=== PATIENT | female | born 1965 | race African-American/Black ===

== ENCOUNTER 2022-12-13 09:57 | Outpatient (REF) | payer OTHER, SELFPAY ==
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
== END 2022-12-13 09:58 | disposition home or self-care (01) ==
LOC: HO.XRAY 09:57
PROVIDERS: PCP Internal Medicine; Visit Provider Nurse Practitioner Family
DX: M25.512 Pain in left shoulder (principal); M62.838 Other muscle spasm
CPT/HCPCS: 73030; 99202

== ENCOUNTER 2025-06-27 10:04 | Outpatient (AMB) | payer OTHER, SELFPAY ==
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
[2025-06-27 10:58] VITALS: BP 142/100; PULSE 82; O2SAT 97; BMI 29.9
--- OUTSIDE RECORDS SUMMARY | 2025-06-27 12:03 | XMS_ITS | Clinical Summary ---
Author Organization [address] [place] [address] [place] [phone] Phone Care Team Providers Care Maintenance Mechanic Telephone Name Role Phone Sarah Price MD Primary Care Provider [phone] Allergies Active Allergy Reactions Criticality Noted Date Comments Oxycodone-Acetaminop hen Nausea And Vomiting,Sweating High 01/03/2006 Shaking (Percocet) Medications aspirin 81 mg chewable tablet Chew 1 tablet (81 mg total) 1 (one) time each day. 90 tablet 2 08/20/19 25 Active metoprolol succinate (Toprol XL) 100 mg 24 hr tablet Take 1 tablet (100 mg total) by mouth 1 (one) time each day. Do not crush or chew. 30 each 11 08/20/19 25 026 Active Wegovy 0.5 mg/0.5 mL injection pen ADMINISTER 0.5 MG UNDER THE SKIN 1 TIME WEEKLY Active triamcinolone (KENALOG) 0.1 % ointment Apply topically 2 (two) times a day if needed for irritation or rash. 15 g 04/26/20 25 026 Active losartan (COZAAR) 50 mg tablet Take 1 tablet (50 mg total) by mouth 1 (one) time each day. 90 tablet 3 05/07/20 25 Active atorvastatin (LIPITOR) 40 mg tablet TAKE 1 TABLET(40 MG) BY MOUTH 1 TIME EACH DAY 90 tablet 1 05/13/20 25 Active ibuprofen (ADVIL,MOTRIN) 800 mg tablet Take 1 tablet (800 mg total) by mouth 1 (one) time each day. Active multivitamin with minerals tablet Take 1 tablet by mouth 1 (one) time each day. Active amLODIPine (NORVASC) 10 mg tablet Take 1 tablet (10 mg total) by mouth 1 (one) time each day. 30 each 06/10/20 25 025 Active amLODIPine (NORVASC) 5 mg tablet TAKE 1 TABLET(5 MG) BY MOUTH 1 TIME EACH DAY 90 tablet 1 01/16/20 25 025 Discontinued docusate sodium (COLACE) 50 mg capsule 1 capsule (50 mg total) 2 (two) times a day. 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 She does have mild concentric LVH with prominent septal hypertrophy. MRI does not demonstrate infiltrative process. We will continue to monitor. Assessment & Plan (05/07/2025 9:54 AM EDT): Most recent echocardiogram from August showed a normal LV systolic function with an EF of 60-65%. She has moderate LVH with prominent septal hypertrophy but MRI does not demonstrate infiltrative disease. Genetic testing was negative. I suspect she could have a mild nonobstructive hypertrophic cardiomyopathy although cannot exclude the possibility of hypertension induced hypertrophy. Blood pressure is not well-controlled. She continues to drink half a pint of alcohol daily and has been encouraged to limit alcohol use. She appears euvolemic on physical exam. See below for adjustment to antihypertensive medication. Will continue to monitor. Assessment & Plan (08/20/2024 4:34 PM EST): Left ventricular systolic function has been back to normal range. Mildly reduced LVEF likely related to heavy alcohol use. She had moderate septal hypertrophy by echocardiogram and had MRI with T wave version. Suspect she could have mild nonobstructive hypertrophic cardiomyopathy although I cannot exclude the possibility of hypertension induced hypertrophy. I will repeat echocardiogram to see whether there is further progression of LVH. Meantime, I discussed with her about genetic testing and she agrees with proceeding the test after genetic testing counseling. Orders: ECG 12 lead Transthoracic echocardiogram (TTE) complete with PRN contrast, bubble, strain, and 3D order panel; Future Multiple thyroid nodules 05/18/2022 Overview (05/17/2024): US 05/14/22 IMPRESSION: Multiple bilateral thyroid nodules without highly suspicious features. Recommend follow-up ultrasound in 6 months. Aortic aneurysm (CMS/HCC V24) 04/23/2022 Overview (05/17/2024): Last Assessment & Plan: Dilated ascending aorta of 4.1 cm in transverse aorta 3.6 cm on echocardiogram from February 2022. We will repeat echocardiogram in February 2023. We will need to get blood pressure to control. Increasing metoprolol as above. LVH (left ventricular hypertrophy) 04/23/2022 Overview (05/17/2024): Last Assessment & Plan: She had fairly significant LVH. Blood pressure is quite elevated today especially diastolic blood pressure. She probably hypertensive heart disease. I will switch metoprolol to carvedilol and start losartan. Assessment & Plan (05/07/2025 9:59 AM EDT): Remains moderate, 1.5 cm on most recent echocardiogram, likely hypertensive heart disease. Blood pressure is not well-controlled in the office today. Losartan dose increased. Acute electrocardiogram changes 04/16/2022 Dyspnea on exertion 04/16/2022 Lower extremity edema 03/05/2022 Overview (05/17/2024): Last Assessment & Plan: We will assess cardiac functions and structures. We will check BNP level. Leg edema has resolved without intervention. Arm pain 03/02/2022 Chest pain 03/02/2022 Overview (05/17/2024): Last Assessment & Plan: Symptoms have improved. Previous ECGs show nonspecific ST segment abnormality most specific in the lateral leads. She underwent a nuclear stress test in the hospital with evidence of small anteroapical ischemic defect with an EF of 45%. She missed her appointment for coronary CTA which I am going to reschedule for her. She still has some blood pressure room and I am going to increase the metoprolol to 50 mg daily. I do believe a lot of her symptoms are secondary to her uncontrolled high blood pressure which I explained to her in depth. Assessment & Plan (08/20/2024 4:34 PM EST): Coronary artery CTA showed only mild plaques. Her lipid is at target. Will continue primary prevention. Constipation 06/28/2019 Obese 05/24/2019 Overview (05/17/2024): Last Assessment & Plan: Discussed diet, exercise and weight loss. We will continue to monitor and adjust treatment as indicated. Colon polyp 04/11/2015 Hyperlipidemia 06/03/2010 Overview (05/17/2024): Last Assessment & Plan: Last lipid panel from March 2022. Total cholesterol 155, HDL 41, LDL 99. Continue statin therapy. May need to adjust therapy depending on results of coronary CTA. Allergic rhinitis 12/09/2009 Essential hypertension 10/16/2008 Overview (05/17/2024): Last Assessment & Plan: Better controlled after cutting down on alcohol intake. Assessment & Plan (05/07/2025 9:56 AM EDT): Blood pressure remains elevated initially 152/110 and on recheck 144/110. Will increase losartan to 50 mg daily for better blood pressure control. Update BMP in 1 week. Continue amlodipine and metoprolol as prescribed. I recommended obtaining a home BP machine and asked her to begin monitoring blood pressure at home, goal <130/80. She will contact the office if blood pressures not improved as expected. Assessment & Plan (08/20/2024 4:34 PM EST): Remain elevated. She is not taking medication correctly and prefer once a day medication. Will switch carvedilol to metoprolol succinate 100 mg and daily and increase dose as tolerated. Alcoholism (CMS/HCC V24, CMS/HCC V28) 05/28/2008 Overview (05/17/2024): Last Assessment & Plan: She has a history of alcohol abuse and continues to drink heavily. She was educated to talk to her PCP regarding safely discontinuing. Tobacco use disorder 06/06/2007 Overview (05/17/2024): Last Assessment & Plan: Currently smoking 1 pack of cigarettes over the course of 2 days. We discussed smoking cessation. Continue nicotine patch. We discussed not smoking while she is wearing a nicotine patch. Assessment & Plan (05/07/2025 9:57 AM EDT): I had an extensive discussion regarding effects of tobacco use on heart (and general) health. We discussed smoking cessation. She is currently contemplating quitting. Intramural leiomyoma of uterus 12/19/2006 Encounters Date Type Department Care Team Description 06/10/2025 Telephone Internal Medicine - [facility] [address] [place] [address] Sarah Price MD 06/06/2025 3:30 PM EDT Consult General Surgery - [place] [address] [place] [phone] Jevon Castellon MD Lipoma of torso (Primary Dx) 06/06/2025 Telephone [facility] - [facility] [address] [facility] [address] [place] [phone] Hortencia Boss MD 06/04/2025 Results Follow-Up Internal Medicine - [facility] [address] [place] [address] Benton Quintanilla PA 05/31/2025 2:45 PM EDT Office Visit Internal Medicine - [facility] [address] [place] [address] Benton Quintanilla PA Compression fracture of L2 vertebra with routine healing, subsequent encounter (Primary Dx) 05/28/2025 Telephone Internal Medicine - [facility] [address] [place] [address] Sarah Price MD 05/13/2025 Telephone [facility] - [facility] [address] [facility] [address] [place] [phone] Hortencia Boss MD 05/07/2025 9:10 AM EDT Office Visit [facility] - [facility] [address] [facility] [address] [place] [phone] Kerri Batres NP Cardiomyopathy, unspecified type (CMS/HCC V24, CMS/HCC V28) (Primary Dx); Essential hypertension; LVH (left ventricular hypertrophy); Tobacco use disorder 04/26/2025 11:30 AM EDT Office Visit Internal Medicine - [facility] [address] [place] [address] Benton Quintanilla PA Health maintenance examination (Primary Dx); Hyperlipidemia, unspecified hyperlipidemia type; Essential hypertension; Lipoma, unspecified site; Abnormal kidney function 04/05/2025 Telephone Internal Medicine - [facility] [address] [place] [address] Hortensia Hunter, from Last 3 Months Immunizations Immunization Administration Dates Next Due Pneumococcal polysaccharide 23 valent (Pneumovax 23) 2yo and older 06/06/2007 Tdap Tetanus diptheria acell ular pertussis (Boostrix; Adacel) 7yo and older 06/06/2007 Surgical History Surgery Date Site/Laterality Comments COLONOSCOPY 04/11/2015 COLON POLYP X1 OTHERWISE NORMAL HYSTERECTOMY 05/15/2007 VAGINAL HYST WITH REMOVAL OF OVARIES AND FALLOPAIN TUBES OTHER SURGICAL HISTORY SKIN TISSUE EXCISION OTHER SURGICAL HISTORY FL CORPJ HLX VLGS BNCTY SESMDC W/ DOUBLE OSTEOTOMY Medical History Medical History Date Comments Essential hypertension Family History Medical History Relation Name Comments COPD Father HTN Father Cataracts Mother Relation Name Status Comments Father Mother Social History Tobacco Use Types Packs/Day Years Used Date Smoking Tobacco: Every Day Cigarettes Smokeless Tobacco: Never Tobacco Cessation:Ready to Q uit: Not Asked; Counseling Given: Not Answered Alcohol Use Standard Drinks/Week Comments Yes 0 (1 standard drink = 0.6 oz pur e alcohol) a pint a day Comments No Sex and Gender Information Value Date Recorded Sex Assigned at Not on file Legal Sex Female 7:28 AM EST Gender Identity Not on file Sexual Orientation Not on file Obstetrics History Para Term AB IAB SAB Ectopic Multiple Livin g Live Births 1 1 1 Date Outcome GA Total Labor Labor/2nd/3rd Weight Sex Type Anes PTL Mary A1 A5 Name Clin Term Last Filed Vital Signs Vital Sign Reading Time Taken Comments Blood Pressure 161/112 06/06/2025 3:48 PM EDT Pulse 81 06/06/2025 3:14 PM EDT Temperature - - Respiratory Rate 16 04/26/2025 11:23 AM EDT Oxygen Saturation 98% 05/07/2025 9:09 AM EDT Inhaled Oxygen Concentration - - Weight 93.9 kg (207 lb) 06/06/2025 3:14 PM EDT Height 175.3 cm (5' 9 ) 06/06/2025 3:14 PM EDT Body Mass Index 30.57 06/06/2025 3:14 PM EDT Plan of Treatment Upcoming Encounters Date Type Department Care Team (Late st Contact Info) Description 08/29/2025 7:40 AM EST Office Visit [facility] - [facility] [address] [facility] [address] [place] [phone] Kerri Batres NP [address] [place] [address] [address] [place] [address] 09/03/2025 3:00 PM EST Procedure visit General Surgery - [place] [address] [facility] [address] [place] [phone] Jevon Castellon MD [address] [facility] [address] [place] [address] 10/24/2025 3:00 PM EDT Office Visit Internal Medicine - [facility] [address] [place], [place] [phone] Sarah Price MD [address] [place], [place] Health Maintenance Due Date Last Done Comments Hepatitis A Vaccines (1 of 2 - Risk 2-dose series) 10/12/1982 Pneumococcal Vaccine: 50+ Years (2 of 2 - PCV) 06/06/2008 06/06/2007 RSV Immunization Adult Patients (1 - Risk 50-74 years 1-dose series) 10/12/2013 Zoster Vaccines (1 of 2) 10/12/2013 DTaP,Tdap,and Td Vaccines (2 - Td or Tdap) 06/06/2017 06/06/2007 HIV Screening 07/24/2022 Osteoporosis Screening (Bone Density Screening) 07/24/2022 Social Influencers of Health Screening 07/24/2022 Depression Screening 08/15/2024 COVID-19 Vaccine ( season) 2025 Influenza Vaccine (#1) 2025 Lung Cancer Screening (Low Dose CT) 02/21/2026 02/21/2025, 01/05/2024, 01/04/2024 Colorectal Cancer Screening: Colonoscopy 02/23/2026 02/23/2021 Hypertension/CHF/CAD Annual BMP Blood Test 05/31/2026 05/31/2025, 04/26/2025, 03/13/2024, Additional history exists Breast Cancer Screening 01/09/2027 01/10/20 25, 01/03/2024, 01/03/2024, Additional history exists Cholesterol Screening (Lipid Panel) 04/26/2030 04/26/2025, 12/16/2023, 12/16/2023 Hepatitis C Screening Completed 08/18/2015 HIB Vaccines Aged Out No longer eligi ble based on patient's age to complete this topic HPV Vaccines Aged Out No longer eligi ble based on patient's age to complete this topic Hepatitis B Vaccines Aged Out No long er eligible based on patient's age to complete this topic IPV Vaccines Aged Out No longer eligi ble based on patient's age to complete this topic MMR Vaccines Aged Out No longer eligi ble based on patient's age to complete this topic Meningococcal ACWY Vaccine Aged Out N o longer eligible based on patient's age to complete this topic Meningococcal B Vaccine Aged Out No l onger eligible based on patient's age to complete this topic RSV Immunization Patients Under 20 months Aged Out No longer eligible based on patient's age to complete this topic Varicella Vaccines Aged Out No longer eligible based on patient's age to complete this topic Procedures Procedure Name Priority Date/Time Associated Diagnosis Comments BASIC METABOLIC PANEL Routine 05/31/2025 2:59 PM EDT Abnormal kidney function ECG 12-LEAD Routine 05/07/2025 10:34 AM EDT Cardiomyopathy, unspecified type (CMS/HCC V24, CMS/HCC V28) LIPID PANEL WITH REFLEX TO DIRECT LDL Routine 04/26/2025 11:49 AM EDT Hyperlipidemia, unspecified hyperlipidemia type Essential hypertension COMPREHENSIVE METABOLIC PANEL Routine 04/26/2025 11:49 AM EDT Hyperlipidemia, unspecified hyperlipidemia type Essential hypertension CT LUNG SCREENING Routine 02/21/2025 4:0 1 PM EDT Encounter for screening for malignant neoplasm of respiratory organs Nicotine dependence, cigarettes, uncomplicated MG MAMMO DIGITAL SCREENING W ARNAV BILAT Routine 01/09/2025 4:01 PM EDT Encounter for screening mammogram for breast cancer HM COLONOSCOPY Routine 02/23/2021 HEPATITIS C SCREENING Routine 08/18/2015 from Last 3 Months or Most Recently Relevant to Health Maintenance Results * (ABNORMAL) Basic metabolic panel (05/31/2025 2:59 PM EDT) Sodium 141 133 - 145 mmol/L LAB CHEMISTRY METHOD 05/31/2025 6:39 PM EDT [facility] Potassium 3.5 3.5 - 5.5 mmol/L LAB CHEMISTRY METHOD 05/31/2025 6:39 PM EDT [facility] Chloride 107 96 - 110 mmol/L LAB CHEMISTRY METHOD 05/31/2025 6:39 PM EDT [facility] CO2 30 21 - 32 mmol/L LAB CHEMISTRY METHOD 05/31/2025 6:39 PM EDT [facility] Anion Gap 4 3 - 11 LAB CHEMISTRY METHOD 05/31/2025 6:39 PM EDT [facility] Glucose 81 70 - 100 mg/dL LAB CHEMISTRY METHOD 05/31/2025 6:39 PM T [facility] BUN 21 5 - 25 mg/dL LAB CHEMISTRY METHOD 05/31/2025 6:39 PM T [facility] Creatinine 1.14(H) 0.50 - 1.10 mg/dL LAB CHEMISTRY METHOD 05/31/2025 6:39 PM EDT [facility] eGFR 55(L) >=60 mL/min/1. 73m2 LAB CHEMISTRY METHOD 05/31/2025 6:39 PM T [facility] Comment:Calculation based on the Chronic Kidney Disease Epidemiology Collaboration (CKD-EPI) equation refit without adjustment for race. BUN/Creatinine Ratio 18.4 LAB CHEMISTRY METHOD 05/31/2025 6:39 PM T [facility] Calcium 9.3 8.5 - 10.5 mg/dL LAB CHEMISTRY METHOD 05/31/2025 6:39 PM [facility] Blood Venous blood specimen / Unknown Venipuncture / Unknown 05/31/2025 2:59 PM EDT 05/31/2025 2:59 PM EDT [facility] BLOOD ORDERABLES Fi nal Result [facility] [address] [place] [address], * ECG 12 lead (05/07/2025 10:34 AM EDT) Ventricular Rate ECG 80 BPM [facility] Atrial Rate 80 BPM GEM[facility] P-R Interval 136 ms GEMUSE QRS Duration 92 ms GEMUSE Q-T Interval 398 ms GEMUSE QTc 459 ms GEMUSE P Wave [place] 28 degrees GEMUSE R [place] -52 degrees GEMUSE T [place] -76 degrees GEMUSE ECG Interpretation Normal sinus rhythm Left anterior fascicular block Voltage criteria for left ventricular hypertrophy ST and T wave abnormality, consider inferior ischemia ST and T wave abnormality, consider anterolateral ischemia No significant changes are noted when compared with EKG from 08/2024. Confirmed by Carlito CASTREJON JOHN ([id number]) on 05/09/2025 3:59:50 PM [facility] 05/07/2025 9:15 AM EDT 05/09/2025 3:59 PM EDT us Kerri Batres CIRCUITRY NEGATIVE INSPECTOR ECG ORDERABLES Edited Result - Final [facility] * Lipid panel with reflex to direct LDL (04/26/2025 11:49 AM EDT) Cholesterol 169 0 - 200 mg/dL LAB CHEMISTRY METHOD 04/26/2025 3:46 PM EDT [facility] Triglycerides 124 0 - 150 mg/dL LAB CHEMISTRY METHOD 04/26/2025 3:46 PM EDT [facility] HDL 56 >=40 mg/dL LAB CHEMISTRY METHOD 04/26/2025 3:46 PM EDT [facility] LDL Calculated 88 0 - 100 mg/dL LAB CHEMISTRY METHOD 04/26/2025 3:46 PM EDT [facility] Comment:Estimated LDL Calcul ated using equation: Total cholesterol - HDL cholesterol - (Triglycerides/5) VLDL Cholesterol Rubio 24.8 mg/dL LAB CHEMISTRY METHOD 04/26/2025 3:46 PM T [facility] Non HDL Chol. (LDL+VLDL) 113 <145 mg/dL LAB CHEMISTRY METHOD 04/26/2025 3:46 PM EDT [facility] Chol/HDL Ratio 3.0 0.0 - 4.4 LAB CHEMISTRY METHOD 04/26/2025 3:46 PM T [facility] Blood Venous blood specimen / Unknown Venipuncture / Unknown 04/26/2025 11:49 AM EDT 04/26/2025 11:49 AM EDT [facility] BLOOD ORDERABLES Fi nal Result [facility] [address] [place] [address], [place] [phone] * (ABNORMAL) Comprehensive metabolic panel (04/26/2025 11:49 AM EDT) Pathologist [facility] Sodium 143 133 - 145 mmol/L LAB CHEMISTRY METHOD 04/26/2025 3:46 PM [facility] Potassium 3.5 3.5 - 5.5 mmol/L LAB CHEMISTRY METHOD 04/26/2025 3:46 PM [facility] Chloride 107 96 - 110 mmol/L LAB CHEMISTRY METHOD 04/26/2025 3:46 PM [facility] CO2 31 21 - 32 mmol/L LAB CHEMISTRY METHOD 04/26/2025 3:46 PM [facility] Anion Gap 5 3 - 11 LAB CHEMISTRY METHOD 04/26/2025 3:46 PM [facility] Glucose 109(H) 70 - 100 mg/dL LAB CHEMISTRY METHOD 04/26/2025 3:46 PM [facility] BUN 22 5 - 25 mg/dL LAB CHEMISTRY METHOD 04/26/2025 3:46 PM [facility] Creatinine 1.24(H) 0.50 - 1.10 mg/dL LAB CHEMISTRY METHOD 04/26/2025 3:46 PM [facility] eGFR 50(L) >=60 mL/min/1. 73m2 LAB CHEMISTRY METHOD 04/26/2025 3:46 PM [facility] Comment:Calculation based on the Chronic Kidney Disease Epidemiology Collaboration (CKD-EPI) equation refit without adjustment for race. BUN/Creatinine Ratio 17.7 LAB CHEMISTRY METHOD 04/26/2025 3:46 PM EDT [facility] Calcium 8.9 8.5 - 10.5 mg/dL LAB CHEMISTRY METHOD 04/26/2025 3:46 PM EDT [facility] AST (SGOT) 20 10 - 42 unit/L LAB CHEMISTRY METHOD 04/26/2025 3:46 PM EDT [facility] ALT (SGPT) 23 10 - 60 unit/L LAB CHEMISTRY METHOD 04/26/2025 3:46 PM EDT [facility] Alkaline Phosphatase 65 42 - 121 unit/L LAB CHEMISTRY METHOD 04/26/2025 3:46 PM EDT [facility] Total Protein 6.4 6.0 - 8.0 g/dL LAB CHEMISTRY METHOD 04/26[facility]2025 [facility] Albumin 3.6 3.2 - 5.0 g/dL LAB CHEMISTRY METHOD 04/26/2025 3:46 PM EDT [facility] Total Bilirubin 0.5 0.0 - 1.4 mg/dL LAB CHEMISTRY METHOD 04/26/2025 3:46 PM EDT [facility] Blood Venous blood specimen / Unknown Venipuncture / Unknown 04/26/2025 11:49 AM EDT 04/26/2025 11:49 AM EDT [facility] BLOOD ORDERABLES Fi nal Result [facility] [address] [place] [address], * CT Lung Screening (02/21/2025 4:01 PM EDT) Anatomical Region Laterality Modality Chest Computed Tomogra phy 02/22/2025 10:3 4 AM EDT Impressions 02/22/2025 10:41 AM EDT No suspicious mass or nodule. No suspicious interval change LUNG RADS: Lung-RADS 2: BENIGN S Modifier (Significant or Potentially Significant Findings): None present No suspicious nonpulmonary findings. RECOMMENDATIONS: 12 month screening low dose [address] -------- FINAL REPORT -------- Dictated By: Júnior Castillo Dictated Date: 02/22/2025 10:34 ET Assigned Physician: Júnior Castillo Reviewed and Electronically Signed By: Júnior Castillo Signed Date: 02/22/2025 10:41 ET Workstation ID: [id number] Transcribed By: Self Edit Transcribed Date: 02/22/2025 10:34 ET Narrative 02/22/2025 10:41 AM EDT EXAMINATION: CT CHEST WITHOUT CONTRAST LUNG CANCER SCREENING, LOW DOSE CLINICAL INFORMATION: Lung cancer screening. Current smoker. COMPARISON: Portions of previous 01/04/24 TECHNIQUE: Multidetector CT. Examination of the chest. Examination of the chest without IV contrast. Reformatting in the coronal and sagittal planes. Device: [employer] DLP: 155 mGy-cm CTDI: 4.89 Dose optimization was performed including the use of low-dose iterative reconstruction technique with automatic exposure control based on patient size. Type of contrast: None Volume of IV contrast: None Volume of contrast discarded: 0 mL FINDINGS: LUNG: No abnormality of the trachea or mainstem bronchi. LUNG NODULES: There are no suspicious nodules or masses. OTHER PULMONARY: There are pleural associated micronodules with typically benign features. MEDIASTINUM: There are no enlarged mediastinal or hilar lymph nodes. No suspicious abnormalities of the esophagus. CARDIAC: The heart is not enlarged. No pericardial fluid or thickening There are mild coronary calcifications. VASCULAR: The ascending aorta measures 4.0 cm. The main pulmonary artery appears normal. PLEURA: There is no pleural fluid or pneumothorax AXILLA/CHEST WALL: There are no enlarged axillary lymph nodes. No chest wall mass demonstrated. VISUALIZED UPPER ABDOMEN: No suspicious abnormality on limited assessment of the visualized upper abdomen. Unchanged small circumscribed low attenuating liver lesions may represent cysts. MUSCULOSKELETAL: No suspicious focal bony lesion demonstrated. Procedure Note Júnior Castillo MD - 02/22/2025 EXAMINATION: CT CHEST WITHOUT CONTRAST LUNG CANCER SCREENING, LOW DOSE CLINICAL INFORMATION: Lung cancer screening. Current smoker. COMPARISON: Portions of previous 01/04/24 TECHNIQUE: Multidetector CT. Examination of the chest. Examination of the chest without IV contrast. Reformatting in the coronal and sagittal planes. Device: [employer] DLP: 155 mGy-cm CTDI: 4.89 Dose optimization was performed including the use of low-dose iterativereconstruction technique with automatic exposure control based on patientsize. Type of contrast: None Volume of IV contrast: None Volume of contrast discarded: 0 mL FINDINGS: LUNG: No abnormality of the trachea or mainstem bronchi. LUNG NODULES: There are no suspicious nodules or masses. OTHER PULMONARY: There are pleural associated micronodules with typicallybenign features. MEDIASTINUM: There are no enlarged mediastinal or hilar lymph nodes. Nosuspicious abnormalities of the esophagus. CARDIAC: The heart is not enlarged. No pericardial fluid or thickening There are mild coronary calcifications. VASCULAR: The ascending aorta measures 4.0 cm. The main pulmonary arteryappears normal. PLEURA: There is no pleural fluid or pneumothorax AXILLA/CHEST WALL: There are no enlarged axillary lymph nodes. No chestwall mass demonstrated. VISUALIZED UPPER ABDOMEN: No suspicious abnormality on limited assessmentof the visualized upper abdomen. Unchanged small circumscribed lowattenuating liver lesions may represent cysts. MUSCULOSKELETAL: No suspicious focal bony lesion demonstrated. IMPRESSION: No suspicious mass or nodule. No suspicious interval change LUNG RADS: Lung-RADS 2: BENIGN S Modifier (Significant or Potentially Significant Findings): Nonepresent No suspicious nonpulmonary findings. RECOMMENDATIONS: [address] low dose CT -------- FINAL REPORT -------- Dictated By: Júnior Castillo Dictated Date: 02/22/2025 10:34 ET Assigned Physician: Júnior Castillo Reviewed and Electronically Signed By: Júnior Castillo Signed Date: 02/22/2025 10:41 ET Workstation ID: [id number] Transcribed By: Self Edit Transcribed Date: 02/22/2025 10:34 ET us Mary Gar MD [facility] CT PROCEDURES Final Result * [facility] Mammo Digital Screening w Arnav bilat (01/09/2025 4:01 PM EDT) Anatomical Region Laterality Modality Breast Bilateral Mammography 01/10/2025 2:44 PM EDT Impressions 01/10/2025 2:49 PM EDT 1. No mammographic evidence of malignancy 2. Scattered fibroglandular tissue BI-RADS CATEGORY: 2 - BENIGN RECOMMENDATION: Screening bilateral mammogram is recommended in 1 year. Mammo Location: [facility], [address] [place] [address], [id number], . -------- FINAL REPORT -------- Dictated By: Celso Miller Dictated Date: 01/10/2025 14:44 ET Assigned Physician: Celso Miller Reviewed and Electronically Signed By: Celso Miller Signed Date: 01/10/2025 14:49 ET Workstation ID: [id number] Transcribed By: Self Edit Transcribed Date: 01/10/2025 14:44 ET Narrative 01/10/2025 2:49 PM EDT A BILATERAL DIGITAL 3D SCREENING MAMMOGRAPHY HISTORY: Routine screening. COMPARISON: Multiple priors dating back to 02/07/2021 Technique: Bilateral full field digital mammography (3D) was performed using standard CC and MLO projections CAD was used to evaluate this mammogram. FINDINGS: Right: No suspicious masses, groups of microcalcification or areas of architectural distortion identified. Stable typically benign parenchymal asymmetries. Left: No suspicious masses, groups of microcalcification or areas of architectural distortion identified. Stable typically benign parenchymal asymmetries. BREAST DENSITY: B - There are scattered areas of fibroglandular density. Procedure Note Celso Miller MD - 01/10/2025 A BILATERAL DIGITAL 3D SCREENING MAMMOGRAPHY HISTORY: Routine screening. COMPARISON: Multiple priors dating back to 02/07/2021 Technique: Bilateral full field digital mammography (3D) was performedusing standard CC and MLO projections CAD was used to evaluate this mammogram. FINDINGS: Right: No suspicious masses, groups of microcalcification or areas ofarchitectural distortion identified. Stable typically benign parenchymalasymmetries. Left: No suspicious masses, groups of microcalcification or areas ofarchitectural distortion identified. Stable typically benign parenchymalasymmetries. BREAST DENSITY: B - There are scattered areas of fibroglandular density. IMPRESSION: 1. No mammographic evidence of malignancy 2. Scattered fibroglandular tissue BI-RADS CATEGORY: 2 - BENIGN RECOMMENDATION: Screening bilateral mammogram is recommended in 1 year. Mammo Location: [facility], [address] [place] [address], [id number], . -------- FINAL REPORT -------- Dictated By: Celso Miller Dictated Date: 01/10/2025 14:44 ET Assigned Physician: Celso Miller Reviewed and Electronically Signed By: Celso Miller Signed Date: 01/10/2025 14:49 ET Workstation ID: [id number] Transcribed By: Self Edit Transcribed Date: 01/10/2025 14:44 ET Hortensia Hunetr DO IMG BI PROCEDURES Final Result * Colonoscopy (02/23/2021) Colonoscopy abstracted; no interpretation Anatomical Region Laterality Modality Other Historical Provider HEALTH MAINTENANCE Final Result * Hepatitis C Screening (08/18/2015) Hepatitis C Screening abstracted Historical Provider HEALTH MAINTENANCE Final Result from Last 3 Months or Most Recently Relevant to Health Maintenance Insurance [place] [address] Care Teams 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
--- OUTSIDE RECORDS SUMMARY | 2025-06-27 12:03 | XMS_ITS | Patient Health Record ---
Author Organization [facility] [address] Address [address] [place] [address] Care Team Providers Care Neurology Stroke Physician Name Role Phone [facility] Care Provider Unavailable ZIGGY DUEÑAS Unavailable [phone] Allergies Allergen (clinical drug ingredient) Drug/Non Drug Allergy documented on EMR Reaction Allergy Type Onset Date Status acetaminophen / oxycodone Percocet stomach upset Drug Allergy Active Reason For Referral No Information Medications Medication SIG (Take, Route, Frequency, Duration) Notes Start Date End Date Status Ketorolac Tromethamine 0.5 % Solution Ophthalmic; Duration: 30 Days Active prednisoLONE Acetate 1 % Suspension SHAKE LIQUID AND INSTILL 1 DROP IN BOTH EYES TWICE DAILY Ophthalmic; Duration: 25 Days Active Escitalopram Oxalate 10 MG Tablet Oral; Duration: 30 Days Acti ve Atorvastatin Calcium 40 MG Tablet Oral; Duration: 30 Days Acti ve Varenicline Tartrate (Starter) 0.5 MG X 11 & 1 MG X 42 Tablet Therapy Pack FOLLOW PACKAGE INSTRUCTIONS Oral; Duration: 28 Days Not-Taking Wegovy 1.7 MG/0.75ML Solution Auto-injector Inject 1.7mg Subcutaneous once weekly; Duration: 30 days Active amLODIPine Besylate 10 MG Tablet 1 tablet Oral Once a day; Duration: 30 days Active Losartan Potassium 50 MG Tablet TAKE 1 TABLET BY MOUTH DAILY Oral; Duration: 30 days Active Metoprolol Succinate ER 100 MG Tablet Extended Release 24 Hour Oral; Duration: 30 Days A ctive Social History Section Notes: 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: 4 nips daily Tob: 1 PPD x40 years Drug: Denies 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: 4 nips daily Tob: 1 PPD x40 years Drug: Denies 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: 4 nips daily Tob: 1 PPD x40 years Drug: Denies 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: 4 nips daily Tob: 1 PPD x40 years Drug: Denies 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: 4 nips daily Tob: 1 PPD x40 years Drug: Denies Problems Problem Type SNOMED Code ICD Code Onset Dates Problem Status W/U Status Risk Notes Problem Essential hypertension (83275599) Essential hypertension (I10) Active confirmed Problem Hyperlipidaemia (17154840) Hyperlipidemia, unspecified hyperlipidemia type (E78.5) Active confirmed Problem Overweight (229117035) Overweight (BMI 25.0-29.9) (E66.3) Active confirmed Problem Mild depression (328842257) Mild depression (F32.A) Active confirmed Problem History of obesity (747895308) History of obesity (Z86.39) Active confirmed Vital Signs Heart Rate 89 /min 06/13/2025 Oximetry 98 % 06/13/2025 Blood pressure diastolic 88 mm Hg 06/13/2025 Height 70 in 06/13/2025 Blood pressure systolic 136 mm Hg 06/13/2025 Weight 203.8 lbs 06/13/2025 BMI 29.24 kg/m2 06/13/2025 Encounters Encounter Location Date Provider Diagnosis [facility] [phone] [address] 01/22/2025 ZIGGY DUEÑAS Obesity (BMI 30.0-34 .9) E66.811 ; BMI 30.0-30.9,adult Z68.30 ; Essential hypertension I10 ; Hyperlipidemia, unspecified hyperlipidemia type E78.5 ; Mild depression F32.A and Nutritional counseling Z71.3 [facility] [address] [address] 02/19/2025 ZIGGY DUEÑAS BMI 30.0-30.9,adult Z68.30 ; Obesity (BMI 30.0-34.9) E66.811 ; Essential hypertension I10 ; Hyperlipidemia, unspecified hyperlipidemia type E78.5 ; Mild depression F32.A and Nutritional counseling Z71.3 [facility] [address] [address] 03/28/2025 ZIGGY DUEÑAS Overweight (BMI 25.0-29.9) E66.3 ; BMI 29.0-29.9,adult Z68.29 ; History of obesity Z86.39 ; Essential hypertension I10 ; Hyperlipidemia, unspecified hyperlipidemia type E78.5 ; Mild depression F32.A and Nutritional counseling Z71.3 [facility] [address] [address] 05/09/2025 ZIGGY DUEÑAS BMI 29.0-29.9,adult Z68.29 ; Overweight (BMI 25.0-29.9) E66.3 ; History of obesity Z86.39 ; Essential hypertension I10 ; Hyperlipidemia, unspecified hyperlipidemia type E78.5 ; Mild depression F32.A and Nutritional counseling Z71.3 [facility] [address] [address] 06/13/2025 ZIGGY MOLINAHAM BMI 29.0-29.9,adult Z68.29 ; Overweight (BMI 25.0-29.9) E66.3 ; History of obesity Z86.39 ; Essential hypertension I10 ; Hyperlipidemia, unspecified hyperlipidemia type E78.5 ; Mild depression F32.A and Nutritional counseling Z71.3 [facility] [address] [address] 01/22/2025 ZIGGY MOLINAHAM [facility] [address] [address] 02/20/2025 ZIGGY CAMUY Obesity (BMI 30.0-34 .9) E66.811 Assessments Encounter Date Diagnosis (ICD Code) Assessment Notes Treatment Notes Treatment Clinical Notes Section Notes 01/22/2025 BMI 30.0-30.9,adult (ICD-10 - Z68.30) Martha is a 59-year-old female with a PMH of HTN, HLD, depression that presents for weight management consult. Patient was reassured and welcomed to the practice. Discussed [facility] holistic and medical approach to weight loss with emphasis on lifestyle modification. Patient is educated that a healthy lifestyle aids in combating obesity as well as reducing the risk of developing obesity-related medical complications including but not limited to diabetes and cardiovascular disease. Detailed education provided about taking steps to initiate sustainable lifestyle changes including incorporating regular physical activity, making healthy diet choices, and prioritizing mental health. Information provided about literature including The Food Rules by Brian Guthrie and Eat Fat Get Lean by Dr Peter Marion. Handouts including lifestyle checklist, protein content of food, low calorie snacks, and cholesterol information sheet provided. Diagnostic testing/ SECA scale offered. Discussed the importance of regular SECA scale measurements to ensure healthy weight loss. 01/22/2025: Weight: 215.3, BMI: 30.9. Reviewed SECA/goals for implementing sustainable lifestyle changes. Patient is encouraged to increase physical activity, goal 8-10k steps/day. Also discussed the importance of strength training with proper safety/body mechanics for maintenance of muscle mass/bone health. Patient encouraged to drink 60-80oz water/day. Reviewed nutrition, recommending food diary x 1 week to ensure adequate caloric/protein intake. Goal of 80-100g protein/day. Reviewed risks, benefits, and side effects of weight management medications including phentermine, Topamax, Contrave, metformin, and GLP-1 agonist. Patient interested in GLP-1/GIP agonist Zepbound. Denies personal/family history of medullary thyroid cancer/M EN. Rx for Zepbound 2.5 mg SC weekly sent to pharmacy. Reviewed proper use, administration, and expectations for PA process/insurance coverage. After consultation and careful review of medical history, this patient would benefit from Zepbound based off of the following criteria met: Patient is over the age of 18 with a BMI of 30.9 additional comorbidities include HTN, HLD. Patient has trialed other methods of weight loss including improving diet and exercise without success. This medication is prescribed by or in consultation with a board-certified obesity and weight management physician (Dr. Agustin Zuniga or Dr. Derek Zuniga). All questions answered to the patient's satisfaction. Patient demonstrates understanding of diagnosis and treatments discussed. Follow-up at next scheduled appointment, sooner should any questions/concerns arise. Case discussed with collaborating physician Rand Zuniga who has reviewed the assessment/plan. Chart, medications, labs, and vital signs reviewed. Dictation completed with the use of [employer] voice recognition software, prone to medical misidentifications and grammatical errors. All errors are unintentional. Although the practitioner does try to identify and correct errors, some may be present. Please do not hesitate to contact the practitioner for clarification. Total time was 60 minutes spent with greater than 50% on coordination of care and patient education. 01/22/2025 Obesity (BMI 30.0-34.9) (ICD-10 - E66.811) Martha is a 59-year-old female with a PMH of HTN, HLD, depression that presents for weight management consult. Patient was reassured and welcomed to the practice. Discussed [facility] holistic and medical approach to weight loss with emphasis on lifestyle modification. Patient is educated that a healthy lifestyle aids in combating obesity as well as reducing the risk of developing obesity-related medical complications including but not limited to diabetes and cardiovascular disease. Detailed education provided about taking steps to initiate sustainable lifestyle changes including incorporating regular physical activity, making healthy diet choices, and prioritizing mental health. Information provided about literature including The Food Rules by Brian Guthrie and Eat Fat Get Lean by Dr Peter Marion. Handouts including lifestyle checklist, protein content of food, low calorie snacks, and cholesterol information sheet provided. Diagnostic testing/ SECA scale offered. Discussed the importance of regular SECA scale measurements to ensure healthy weight loss. 01/22/2025: Weight: 215.3, BMI: 30.9. Reviewed SECA/goals for implementing sustainable lifestyle changes. Patient is encouraged to increase physical activity, goal 8-10k steps/day. Also discussed the importance of strength training with proper safety/body mechanics for maintenance of muscle mass/bone health. Patient encouraged to drink 60-80oz water/day. Reviewed nutrition, recommending food diary x 1 week to ensure adequate caloric/protein intake. Goal of 80-100g protein/day. Reviewed risks, benefits, and side effects of weight management medications including phentermine, Topamax, Contrave, metformin, and GLP-1 agonist. Patient interested in GLP-1/GIP agonist Zepbound. Denies personal/family history of medullary thyroid cancer/M EN. Rx for Zepbound 2.5 mg SC weekly sent to pharmacy. Reviewed proper use, administration, and expectations for PA process/insurance coverage. After consultation and careful review of medical history, this patient would benefit from Zepbound based off of the following criteria met: Patient is over the age of 16 with a BMI of 30.9 additional comorbidities include HTN, HLD. Patient has trialed other methods of weight loss including improving diet and exercise without success. This medication is prescribed by or in consultation with a board-certified obesity and weight management physician (Dr. Agustin Zuniga or Dr. Derek Zuniga). All questions answered to the patient's satisfaction. Patient demonstrates understanding of diagnosis and treatments discussed. Follow-up at next scheduled appointment, sooner should any questions/concerns arise. Case discussed with collaborating physician Rand Zuniga who has reviewed the assessment/plan. Chart, medications, labs, and vital signs reviewed. Dictation completed with the use of [employer] voice recognition software, prone to medical misidentifications and grammatical errors. All errors are unintentional. Although the practitioner does try to identify and correct errors, some may be present. Please do not hesitate to contact the practitioner for clarification. Total time was 60 minutes spent with greater than 50% on coordination of care and patient education. 02/19/2025 BMI 30.0-30.9,adult (ICD-10 - Z68.30) Martha is a 59-year-old female with a PMH of HTN, HLD, depression that presents for weight management follow up. Reviewed [facility] holistic and medical approach to weight loss with emphasis on lifestyle modification. 02/19/2025: Weight: 214, BMI: 30.7. Patient down 1 pound. SECA reviewed, reveals fat loss with improvement in muscle mass. Patient encouraged to continue making health-conscious diet choices and prioritizing protein intake. Discussed importance of regular eating habits in the setting of GLP-1 induced appetite suppression. She is encouraged to increase physical activity as tolerated given back injury. Plan to increase dose of the 0.5 mg SC weekly and follow-up in 4 weeks. #HTN: BP elevated at 138/96. Discussed importance of antihypertensive compliance. BP likely elevated in setting of current steroid use. Patient encouraged to continue monitoring. 01/22/2025: Weight: 215.3, BMI: 30.9. All questions answered to the patient's satisfaction. Patient demonstrates understanding of diagnosis and treatments discussed. Follow-up at next scheduled appointment, sooner should any questions/concerns arise. Case discussed with collaborating physician Rand Zuniga who has reviewed the assessment/plan. Chart, medications, labs, and vital signs reviewed. Dictation completed with the use of [employer] voice recognition software, prone to medical misidentifications and grammatical errors. All errors are unintentional. Although the practitioner does try to identify and correct errors, some may be present. Please do not hesitate to contact the practitioner for clarification. Total time was 30 minutes spent with greater than 50% on coordination of care and patient education. 03/28/2025 BMI 29.0-29.9,adult (ICD-10 - Z68.29) Martha is a 59-year-old female with a PMH of HTN, HLD, depression that presents for weight management follow up. Reviewed [facility] holistic and medical approach to weight loss with emphasis on lifestyle modification. 03/28/2025: Weight: 208, BMI: 29.8 (-6lbs) SECA reviewed, reveals fat loss and mild loss of muscle mass. Patient encouraged to continue practicing portion control, prioritizing protein intake, and limiting intake of excess fatty foods/carbs. She is encouraged to continue hydrating adequately and exercising as tolerated. Because insurance will no longer cover Zepbound patient willing to transition to Wegovy. Sample of Wegovy 0.25 mg SC weekly Provided, if tolerated plan to increase to 0.5 mg SC weekly. Reviewed proper use/SE follow-up in 4-6 weeks. #HTN: BP elevated at 148/98. Discussed importance of antihypertensive compliance. Patient encouraged to continue monitoring at home. If consistently elevated >130/90 she understands to contact her PCP. 02/19/2025: Weight: 214, BMI: 30.7. (-1lb) 01/22/2025: Weight: 215.3, BMI: 30.9. All questions answered to the patient's satisfaction. Patient demonstrates understanding of diagnosis and treatments discussed. Follow-up at next scheduled appointment, sooner should any questions/concerns arise. Case discussed with collaborating physician Rand Zuniga who has reviewed the assessment/plan. Chart, medications, labs, and vital signs reviewed. Dictation completed with the use of [employer] voice recognition software, prone to medical misidentifications and grammatical errors. All errors are unintentional. Although the practitioner does try to identify and correct errors, some may be present. Please do not hesitate to contact the practitioner for clarification. Total time was 30 minutes spent with greater than 50% on coordination of care and patient education. 03/28/2025 Overweight (BMI 25.0-29.9) (ICD-10 - E66.3) Martha is a 59-year-old female with a PMH of HTN, HLD, depression that presents for weight management follow up. Reviewed [facility] holistic and medical approach to weight loss with emphasis on lifestyle modification. 03/28/2025: Weight: 208, BMI: 29.8 (-6lbs) SECA reviewed, reveals fat loss and mild loss of muscle mass. Patient encouraged to continue practicing portion control, prioritizing protein intake, and limiting intake of excess fatty foods/carbs. She is encouraged to continue hydrating adequately and exercising as tolerated. Because insurance will no longer cover Zepbound patient willing to transition to Wegovy. Sample of Wegovy 0.25 mg SC weekly Provided, if tolerated plan to increase to 0.5 mg SC weekly. Reviewed proper use/SE follow-up in 4-6 weeks. #HTN: BP elevated at 148/98. Discussed importance of antihypertensive compliance. Patient encouraged to continue monitoring at home. If consistently elevated >130/90 she understands to contact her PCP. 02/19/2025: Weight: 214, BMI: 30.7. (-1lb) 01/22/2025: Weight: 215.3, BMI: 30.9. All questions answered to the patient's satisfaction. Patient demonstrates understanding of diagnosis and treatments discussed. Follow-up at next scheduled appointment, sooner should any questions/concerns arise. Case discussed with collaborating physician Rand Zuniga who has reviewed the assessment/plan. Chart, medications, labs, and vital signs reviewed. Dictation completed with the use of [employer] voice recognition software, prone to medical misidentifications and grammatical errors. All errors are unintentional. Although the practitioner does try to identify and correct errors, some may be present. Please do not hesitate to contact the practitioner for clarification. Total time was 30 minutes spent with greater than 50% on coordination of care and patient education. 02/20/2025 Obesity (BMI 30.0-34.9) (ICD-10 - E66.811) 05/09/2025 BMI 29.0-29.9,adult (ICD-10 - Z68.29) Martha is a 59-year-old female with a PMH of HTN, HLD, depression that presents for weight management follow up. Reviewed [facility] holistic and medical approach to weight loss with emphasis on lifestyle modification. 05/09/2025: Weight: 207, BMI: 29.8 SECA reviewed, reveals minor increase in fat mass and loss of muscle mass. Discussed importance of prioritizing intake of healthier foods. Patient encouraged to avoid fried foods and work on incorporating nutrient dense food options. She is encouraged to increase water intake, goal 60 ounces/day. Discussed importance of increasing physical activity as tolerated. Plan to increase dose of Wegovy to 1 mg SC weekly and follow-up in 4 to 6 weeks. 03/28/2025: Weight: 208, BMI: 29.8 (-6lbs) 02/19/2025: Weight: 214, BMI: 30.7. (-1lb) 01/22/2025: Weight: 215.3, BMI: 30.9. All questions answered to the patient's satisfaction. Patient demonstrates understanding of diagnosis and treatments discussed. Follow-up at next scheduled appointment, sooner should any questions/concerns arise. Case discussed with collaborating physician Rand Zuniga who has reviewed the assessment/plan. Chart, medications, labs, and vital signs reviewed. Dictation completed with the use of [employer] voice recognition software, prone to medical misidentifications and grammatical errors. All errors are unintentional. Although the practitioner does try to identify and correct errors, some may be present. Please do not hesitate to contact the practitioner for clarification. Total time was 30 minutes spent with greater than 50% on coordination of care and patient education. 06/13/2025 BMI 29.0-29.9,adult (ICD-10 - Z68.29) Martha is a 59-year-old female with a PMH of HTN, HLD, depression that presents for weight management follow up. Reviewed [facility] holistic and medical approach to weight loss with emphasis on lifestyle modification. 06/13/2025: Weight: 203.8, BMI: 29.2 (-5lbs) SECA reviewed, reveals 4.2 pounds of fat loss and mild improvement in muscle mass. Patient encouraged to avoid fried foods and work on incorporating nutrient dense food options. She is encouraged to increase water intake, goal 60 ounces/day. Discussed importance of increasing physical activity as tolerated. Plan to increase dose of Wegovy to 1.7 mg SC weekly and follow-up in 4 to 6 weeks. 05/09/2025: Weight: 207, BMI: 29.8 03/28/2025: Weight: 208, BMI: 29.8 (-6lbs) 02/19/2025: Weight: 214, BMI: 30.7. (-1lb) 01/22/2025: Weight: 215.3, BMI: 30.9. All questions answered to the patient's satisfaction. Patient demonstrates understanding of diagnosis and treatments discussed. Follow-up at next scheduled appointment, sooner should any questions/concerns arise. Case discussed with collaborating physician Rand Zuniga who has reviewed the assessment/plan. Chart, medications, labs, and vital signs reviewed. Dictation completed with the use of [employer] voice recognition software, prone to medical misidentifications and grammatical errors. All errors are unintentional. Although the practitioner does try to identify and correct errors, some may be present. Please do not hesitate to contact the practitioner for clarification. Total time was 30 minutes spent with greater than 50% on coordination of care and patient education. 06/13/2025 Overweight (BMI 25.0-29.9) (ICD-10 - E66.3) Martha is a 59-year-old female with a PMH of HTN, HLD, depression that presents for weight management follow up. Reviewed [facility] holistic and medical approach to weight loss with emphasis on lifestyle modification. 06/13/2025: Weight: 203.8, BMI: 29.2 (-5lbs) SECA reviewed, reveals 4.2 pounds of fat loss and mild improvement in muscle mass. Patient encouraged to avoid fried foods and work on incorporating nutrient dense food options. She is encouraged to increase water intake, goal 60 ounces/day. Discussed importance of increasing physical activity as tolerated. Plan to increase dose of Wegovy to 1.7 mg SC weekly and follow-up in 4 to 6 weeks. 05/09/2025: Weight: 207, BMI: 29.8 03/28/2025: Weight: 208, BMI: 29.8 (-6lbs) 02/19/2025: Weight: 214, BMI: 30.7. (-1lb) 01/22/2025: Weight: 215.3, BMI: 30.9. All questions answered to the patient's satisfaction. Patient demonstrates understanding of diagnosis and treatments discussed. Follow-up at next scheduled appointment, sooner should any questions/concerns arise. Case discussed with collaborating physician Rand Zuniga who has reviewed the assessment/plan. Chart, medications, labs, and vital signs reviewed. Dictation completed with the use of [employer] voice recognition software, prone to medical misidentifications and grammatical errors. All errors are unintentional. Although the practitioner does try to identify and correct errors, some may be present. Please do not hesitate to contact the practitioner for clarification. Total time was 30 minutes spent with greater than 50% on coordination of care and patient education. 05/09/2025 Overweight (BMI 25.0-29.9) (ICD-10 - E66.3) Martha is a 59-year-old female with a PMH of HTN, HLD, depression that presents for weight management follow up. Reviewed [facility] holistic and medical approach to weight loss with emphasis on lifestyle modification. 05/09/2025: Weight: 207, BMI: 29.8 SECA reviewed, reveals minor increase in fat mass and loss of muscle mass. Discussed importance of prioritizing intake of healthier foods. Patient encouraged to avoid fried foods and work on incorporating nutrient dense food options. She is encouraged to increase water intake, goal 60 ounces/day. Discussed importance of increasing physical activity as tolerated. Plan to increase dose of Wegovy to 1 mg SC weekly and follow-up in 4 to 6 weeks. 03/28/2025: Weight: 208, BMI: 29.8 (-6lbs) 02/19/2025: Weight: 214, BMI: 30.7. (-1lb) 01/22/2025: Weight: 215.3, BMI: 30.9. All questions answered to the patient's satisfaction. Patient demonstrates understanding of diagnosis and treatments discussed. Follow-up at next scheduled appointment, sooner should any questions/concerns arise. Case discussed with collaborating physician Rand Zuniga who has reviewed the assessment/plan. Chart, medications, labs, and vital signs reviewed. Dictation completed with the use of [employer] voice recognition software, prone to medical misidentifications and grammatical errors. All errors are unintentional. Although the practitioner does try to identify and correct errors, some may be present. Please do not hesitate to contact the practitioner for clarification. Total time was 30 minutes spent with greater than 50% on coordination of care and patient education. 02/19/2025 Obesity (BMI 30.0-34.9) (ICD-10 - E66.811) Martha is a 59-year-old female with a PMH of HTN, HLD, depression that presents for weight management follow up. Reviewed [facility] holistic and medical approach to weight loss with emphasis on lifestyle modification. 02/19/2025: Weight: 214, BMI: 30.7. Patient down 1 pound. SECA reviewed, reveals fat loss with improvement in muscle mass. Patient encouraged to continue making health-conscious diet choices and prioritizing protein intake. Discussed importance of regular eating habits in the setting of GLP-1 induced appetite suppression. She is encouraged to increase physical activity as tolerated given back injury. Plan to increase dose of the 0.5 mg SC weekly and follow-up in 4 weeks. #HTN: BP elevated at 138/96. Discussed importance of antihypertensive compliance. BP likely elevated in setting of current steroid use. Patient encouraged to continue monitoring. 01/22/2025: Weight: 215.3, BMI: 30.9. All questions answered to the patient's satisfaction. Patient demonstrates understanding of diagnosis and treatments discussed. Follow-up at next scheduled appointment, sooner should any questions/concerns arise. Case discussed with collaborating physician Rand Zuniga who has reviewed the assessment/plan. Chart, medications, labs, and vital signs reviewed. Dictation completed with the use of [employer] voice recognition software, prone to medical misidentifications and grammatical errors. All errors are unintentional. Although the practitioner does try to identify and correct errors, some may be present. Please do not hesitate to contact the practitioner for clarification. Total time was 30 minutes spent with greater than 50% on coordination of care and patient education. 03/28/2025 History of obesity (ICD-10 - Z86.39) Martha is a 59-year-old female with a PMH of HTN, HLD, depression that presents for weight management follow up. Reviewed [facility] holistic and medical approach to weight loss with emphasis on lifestyle modification. 03/28/2025: Weight: 208, BMI: 29.8 (-6lbs) SECA reviewed, reveals fat loss and mild loss of muscle mass. Patient encouraged to continue practicing portion control, prioritizing protein intake, and limiting intake of excess fatty foods/carbs. She is encouraged to continue hydrating adequately and exercising as tolerated. Because insurance will no longer cover Zepbound patient willing to transition to Wegovy. Sample of Wegovy 0.25 mg SC weekly Provided, if tolerated plan to increase to 0.5 mg SC weekly. Reviewed proper use/SE follow-up in 4-6 weeks. #HTN: BP elevated at 148/98. Discussed importance of antihypertensive compliance. Patient encouraged to continue monitoring at home. If consistently elevated >130/90 she understands to contact her PCP. 02/19/2025: Weight: 214, BMI: 30.7. (-1lb) 01/22/2025: Weight: 215.3, BMI: 30.9. All questions answered to the patient's satisfaction. Patient demonstrates understanding of diagnosis and treatments discussed. Follow-up at next scheduled appointment, sooner should any questions/concerns arise. Case discussed with collaborating physician Rand Zuniga who has reviewed the assessment/plan. Chart, medications, labs, and vital signs reviewed. Dictation completed with the use of [employer] voice recognition software, prone to medical misidentifications and grammatical errors. All errors are unintentional. Although the practitioner does try to identify and correct errors, some may be present. Please do not hesitate to contact the practitioner for clarification. Total time was 30 minutes spent with greater than 50% on coordination of care and patient education. 01/22/2025 Essential hypertension (ICD-10 - I10) Martha is a 59-year-old female with a PMH of HTN, HLD, depression that presents for weight management consult. Patient was reassured and welcomed to the practice. Discussed [facility] holistic and medical approach to weight loss with emphasis on lifestyle modification. Patient is educated that a healthy lifestyle aids in combating obesity as well as reducing the risk of developing obesity-related medical complications including but not limited to diabetes and cardiovascular disease. Detailed education provided about taking steps to initiate sustainable lifestyle changes including incorporating regular physical activity, making healthy diet choices, and prioritizing mental health. Information provided about literature including The Food Rules by Brian Guthrie and Eat Fat Get Lean by Dr Peter Marion. Handouts including lifestyle checklist, protein content of food, low calorie snacks, and cholesterol information sheet provided. Diagnostic testing/ SECA scale offered. Discussed the importance of regular SECA scale measurements to ensure healthy weight loss. 01/22/2025: Weight: 215.3, BMI: 30.9. Reviewed SECA/goals for implementing sustainable lifestyle changes. Patient is encouraged to increase physical activity, goal 8-10k steps/day. Also discussed the importance of strength training with proper safety/body mechanics for maintenance of muscle mass/bone health. Patient encouraged to drink 60-80oz water/day. Reviewed nutrition, recommending food diary x 1 week to ensure adequate caloric/protein intake. Goal of 80-100g protein/day. Reviewed risks, benefits, and side effects of weight management medications including phentermine, Topamax, Contrave, metformin, and GLP-1 agonist. Patient interested in GLP-1/GIP agonist Zepbound. Denies personal/family history of medullary thyroid cancer/M EN. Rx for Zepbound 2.5 mg SC weekly sent to pharmacy. Reviewed proper use, administration, and expectations for PA process/insurance coverage. After consultation and careful review of medical history, this patient would benefit from Zepbound based off of the following criteria met: Patient is over the age of 16 with a BMI of 30.9 additional comorbidities include HTN, HLD. Patient has trialed other methods of weight loss including improving diet and exercise without success. This medication is prescribed by or in consultation with a board-certified obesity and weight management physician (Dr. Agustin Zuniga or Dr. Derek Zuniga). All questions answered to the patient's satisfaction. Patient demonstrates understanding of diagnosis and treatments discussed. Follow-up at next scheduled appointment, sooner should any questions/concerns arise. Case discussed with collaborating physician Rand Zuniga who has reviewed the assessment/plan. Chart, medications, labs, and vital signs reviewed. Dictation completed with the use of [employer] voice recognition software, prone to medical misidentifications and grammatical errors. All errors are unintentional. Although the practitioner does try to identify and correct errors, some may be present. Please do not hesitate to contact the practitioner for clarification. Total time was 60 minutes spent with greater than 50% on coordination of care and patient education. 01/22/2025 Hyperlipidemia, unspecified hyperlipidemia type (ICD-10 - E78.5) Martha is a 59-year-old female with a PMH of HTN, HLD, depression that presents for weight management consult. Patient was reassured and welcomed to the practice. Discussed [facility] holistic and medical approach to weight loss with emphasis on lifestyle modification. Patient is educated that a healthy lifestyle aids in combating obesity as well as reducing the risk of developing obesity-related medical complications including but not limited to diabetes and cardiovascular disease. Detailed education provided about taking steps to initiate sustainable lifestyle changes including incorporating regular physical activity, making healthy diet choices, and prioritizing mental health. Information provided about literature including The Food Rules by Brian Guthrie and Eat Fat Get Lean by Dr Peter Marion. Handouts including lifestyle checklist, protein content of food, low calorie snacks, and cholesterol information sheet provided. Diagnostic testing/ SECA scale offered. Discussed the importance of regular SECA scale measurements to ensure healthy weight loss. 01/22/2025: Weight: 215.3, BMI: 30.9. Reviewed SECA/goals for implementing sustainable lifestyle changes. Patient is encouraged to increase physical activity, goal 8-10k steps/day. Also discussed the importance of strength training with proper safety/body mechanics for maintenance of muscle mass/bone health. Patient encouraged to drink 60-80oz water/day. Reviewed nutrition, recommending food diary x 1 week to ensure adequate caloric/protein intake. Goal of 80-100g protein/day. Reviewed risks, benefits, and side effects of weight management medications including phentermine, Topamax, Contrave, metformin, and GLP-1 agonist. Patient interested in GLP-1/GIP agonist Zepbound. Denies personal/family history of medullary thyroid cancer/M EN. Rx for Zepbound 2.5 mg SC weekly sent to pharmacy. Reviewed proper use, administration, and expectations for PA process/insurance coverage. After consultation and careful review of medical history, this patient would benefit from Zepbound based off of the following criteria met: Patient is over the age of 16 with a BMI of 30.9 additional comorbidities include HTN, HLD. Patient has trialed other methods of weight loss including improving diet and exercise without success. This medication is prescribed by or in consultation with a board-certified obesity and weight management physician (Dr. Agustin Zuniga or Dr. Derek Zuniga). All questions answered to the patient's satisfaction. Patient demonstrates understanding of diagnosis and treatments discussed. Follow-up at next scheduled appointment, sooner should any questions/concerns arise. Case discussed with collaborating physician Rand Zuniga who has reviewed the assessment/plan. Chart, medications, labs, and vital signs reviewed. Dictation completed with the use of [employer] voice recognition software, prone to medical misidentifications and grammatical errors. All errors are unintentional. Although the practitioner does try to identify and correct errors, some may be present. Please do not hesitate to contact the practitioner for clarification. Total time was 60 minutes spent with greater than 50% on coordination of care and patient education. 02/19/2025 Essential hypertension (ICD-10 - I10) Martha is a 59-year-old female with a PMH of HTN, HLD, depression that presents for weight management follow up. Reviewed [facility] holistic and medical approach to weight loss with emphasis on lifestyle modification. 02/19/2025: Weight: 214, BMI: 30.7. Patient down 1 pound. SECA reviewed, reveals fat loss with improvement in muscle mass. Patient encouraged to continue making health-conscious diet choices and prioritizing protein intake. Discussed importance of regular eating habits in the setting of GLP-1 induced appetite suppression. She is encouraged to increase physical activity as tolerated given back injury. Plan to increase dose of the 0.5 mg SC weekly and follow-up in 4 weeks. #HTN: BP elevated at 138/96. Discussed importance of antihypertensive compliance. BP likely elevated in setting of current steroid use. Patient encouraged to continue monitoring. 01/22/2025: Weight: 215.3, BMI: 30.9. All questions answered to the patient's satisfaction. Patient demonstrates understanding of diagnosis and treatments discussed. Follow-up at next scheduled appointment, sooner should any questions/concerns arise. Case discussed with collaborating physician Rand Zuniga who has reviewed the assessment/plan. Chart, medications, labs, and vital signs reviewed. Dictation completed with the use of [employer] voice recognition software, prone to medical misidentifications and grammatical errors. All errors are unintentional. Although the practitioner does try to identify and correct errors, some may be present. Please do not hesitate to contact the practitioner for clarification. Total time was 30 minutes spent with greater than 50% on coordination of care and patient education. 06/13/2025 History of obesity (ICD-10 - Z86.39) Martha is a 59-year-old female with a PMH of HTN, HLD, depression that presents for weight management follow up. Reviewed [facility] holistic and medical approach to weight loss with emphasis on lifestyle modification. 06/13/2025: Weight: 203.8, BMI: 29.2 (-5lbs) SECA reviewed, reveals 4.2 pounds of fat loss and mild improvement in muscle mass. Patient encouraged to avoid fried foods and work on incorporating nutrient dense food options. She is encouraged to increase water intake, goal 60 ounces/day. Discussed importance of increasing physical activity as tolerated. Plan to increase dose of Wegovy to 1.7 mg SC weekly and follow-up in 4 to 6 weeks. 05/09/2025: Weight: 207, BMI: 29.8 03/28/2025: Weight: 208, BMI: 29.8 (-6lbs) 02/19/2025: Weight: 214, BMI: 30.7. (-1lb) 01/22/2025: Weight: 215.3, BMI: 30.9. All questions answered to the patient's satisfaction. Patient demonstrates understanding of diagnosis and treatments discussed. Follow-up at next scheduled appointment, sooner should any questions/concerns arise. Case discussed with collaborating physician Rand Zuniga who has reviewed the assessment/plan. Chart, medications, labs, and vital signs reviewed. Dictation completed with the use of [employer] voice recognition software, prone to medical misidentifications and grammatical errors. All errors are unintentional. Although the practitioner does try to identify and correct errors, some may be present. Please do not hesitate to contact the practitioner for clarification. Total time was 30 minutes spent with greater than 50% on coordination of care and patient education. 05/09/2025 History of obesity (ICD-10 - Z86.39) Martha is a 59-year-old female with a PMH of HTN, HLD, depression that presents for weight management follow up. Reviewed [facility] holistic and medical approach to weight loss with emphasis on lifestyle modification. 05/09/2025: Weight: 207, BMI: 29.8 SECA reviewed, reveals minor increase in fat mass and loss of muscle mass. Discussed importance of prioritizing intake of healthier foods. Patient encouraged to avoid fried foods and work on incorporating nutrient dense food options. She is encouraged to increase water intake, goal 60 ounces/day. Discussed importance of increasing physical activity as tolerated. Plan to increase dose of Wegovy to 1 mg SC weekly and follow-up in 4 to 6 weeks. 03/28/2025: Weight: 208, BMI: 29.8 (-6lbs) 02/19/2025: Weight: 214, BMI: 30.7. (-1lb) 01/22/2025: Weight: 215.3, BMI: 30.9. All questions answered to the patient's satisfaction. Patient demonstrates understanding of diagnosis and treatments discussed. Follow-up at next scheduled appointment, sooner should any questions/concerns arise. Case discussed with collaborating physician Rand Zuniga who has reviewed the assessment/plan. Chart, medications, labs, and vital signs reviewed. Dictation completed with the use of [employer] voice recognition software, prone to medical misidentifications and grammatical errors. All errors are unintentional. Although the practitioner does try to identify and correct errors, some may be present. Please do not hesitate to contact the practitioner for clarification. Total time was 30 minutes spent with greater than 50% on coordination of care and patient education. 06/13/2025 Essential hypertension (ICD-10 - I10) Martha is a 59-year-old female with a PMH of HTN, HLD, depression that presents for weight management follow up. Reviewed [facility] holistic and medical approach to weight loss with emphasis on lifestyle modification. 06/13/2025: Weight: 203.8, BMI: 29.2 (-5lbs) SECA reviewed, reveals 4.2 pounds of fat loss and mild improvement in muscle mass. Patient encouraged to avoid fried foods and work on incorporating nutrient dense food options. She is encouraged to increase water intake, goal 60 ounces/day. Discussed importance of increasing physical activity as tolerated. Plan to increase dose of Wegovy to 1.7 mg SC weekly and follow-up in 4 to 6 weeks. 05/09/2025: Weight: 207, BMI: 29.8 03/28/2025: Weight: 208, BMI: 29.8 (-6lbs) 02/19/2025: Weight: 214, BMI: 30.7. (-1lb) 01/22/2025: Weight: 215.3, BMI: 30.9. All questions answered to the patient's satisfaction. Patient demonstrates understanding of diagnosis and treatments discussed. Follow-up at next scheduled appointment, sooner should any questions/concerns arise. Case discussed with collaborating physician Rand Zuniga who has reviewed the assessment/plan. Chart, medications, labs, and vital signs reviewed. Dictation completed with the use of [employer] voice recognition software, prone to medical misidentifications and grammatical errors. All errors are unintentional. Although the practitioner does try to identify and correct errors, some may be present. Please do not hesitate to contact the practitioner for clarification. Total time was 30 minutes spent with greater than 50% on coordination of care and patient education. 02/19/2025 Hyperlipidemia, unspecified hyperlipidemia type (ICD-10 - E78.5) Martha is a 59-year-old female with a PMH of HTN, HLD, depression that presents for weight management follow up. Reviewed [facility] holistic and medical approach to weight loss with emphasis on lifestyle modification. 02/19/2025: Weight: 214, BMI: 30.7. Patient down 1 pound. SECA reviewed, reveals fat loss with improvement in muscle mass. Patient encouraged to continue making health-conscious diet choices and prioritizing protein intake. Discussed importance of regular eating habits in the setting of GLP-1 induced appetite suppression. She is encouraged to increase physical activity as tolerated given back injury. Plan to increase dose of the 0.5 mg SC weekly and follow-up in 4 weeks. #HTN: BP elevated at 138/96. Discussed importance of antihypertensive compliance. BP likely elevated in setting of current steroid use. Patient encouraged to continue monitoring. 01/22/2025: Weight: 215.3, BMI: 30.9. All questions answered to the patient's satisfaction. Patient demonstrates understanding of diagnosis and treatments discussed. Follow-up at next scheduled appointment, sooner should any questions/concerns arise. Case discussed with collaborating physician Rand Zuniga who has reviewed the assessment/plan. Chart, medications, labs, and vital signs reviewed. Dictation completed with the use of [employer] voice recognition software, prone to medical misidentifications and grammatical errors. All errors are unintentional. Although the practitioner does try to identify and correct errors, some may be present. Please do not hesitate to contact the practitioner for clarification. Total time was 30 minutes spent with greater than 50% on coordination of care and patient education. 01/22/2025 Mild depression (ICD-10 - F32.A) Martha is a 59-year-old female with a PMH of HTN, HLD, depression that presents for weight management consult. Patient was reassured and welcomed to the practice. Discussed [facility] holistic and medical approach to weight loss with emphasis on lifestyle modification. Patient is educated that a healthy lifestyle aids in combating obesity as well as reducing the risk of developing obesity-related medical complications including but not limited to diabetes and cardiovascular disease. Detailed education provided about taking steps to initiate sustainable lifestyle changes including incorporating regular physical activity, making healthy diet choices, and prioritizing mental health. Information provided about literature including The Food Rules by Brian Guthrie and Eat Fat Get Lean by Dr Peter Marion. Handouts including lifestyle checklist, protein content of food, low calorie snacks, and cholesterol information sheet provided. Diagnostic testing/ SECA scale offered. Discussed the importance of regular SECA scale measurements to ensure healthy weight loss. 01/22/2025: Weight: 215.3, BMI: 30.9. Reviewed SECA/goals for implementing sustainable lifestyle changes. Patient is encouraged to increase physical activity, goal 8-10k steps/day. Also discussed the importance of strength training with proper safety/body mechanics for maintenance of muscle mass/bone health. Patient encouraged to drink 60-80oz water/day. Reviewed nutrition, recommending food diary x 1 week to ensure adequate caloric/protein intake. Goal of 80-100g protein/day. Reviewed risks, benefits, and side effects of weight management medications including phentermine, Topamax, Contrave, metformin, and GLP-1 agonist. Patient interested in GLP-1/GIP agonist Zepbound. Denies personal/family history of medullary thyroid cancer/M EN. Rx for Zepbound 2.5 mg SC weekly sent to pharmacy. Reviewed proper use, administration, and expectations for PA process/insurance coverage. After consultation and careful review of medical history, this patient would benefit from Zepbound based off of the following criteria met: Patient is over the age of 16 with a BMI of 30.9 additional comorbidities include HTN, HLD. Patient has trialed other methods of weight loss including improving diet and exercise without success. This medication is prescribed by or in consultation with a board-certified obesity and weight management physician (Dr. Agustin Zuniga or Dr. Derek Zuniga). All questions answered to the patient's satisfaction. Patient demonstrates understanding of diagnosis and treatments discussed. Follow-up at next scheduled appointment, sooner should any questions/concerns arise. Case discussed with collaborating physician Rand Zuniga who has reviewed the assessment/plan. Chart, medications, labs, and vital signs reviewed. Dictation completed with the use of [employer] voice recognition software, prone to medical misidentifications and grammatical errors. All errors are unintentional. Although the practitioner does try to identify and correct errors, some may be present. Please do not hesitate to contact the practitioner for clarification. Total time was 60 minutes spent with greater than 50% on coordination of care and patient education. 05/09/2025 Essential hypertension (ICD-10 - I10) Martha is a 59-year-old female with a PMH of HTN, HLD, depression that presents for weight management follow up. Reviewed [facility] holistic and medical approach to weight loss with emphasis on lifestyle modification. 05/09/2025: Weight: 207, BMI: 29.8 SECA reviewed, reveals minor increase in fat mass and loss of muscle mass. Discussed importance of prioritizing intake of healthier foods. Patient encouraged to avoid fried foods and work on incorporating nutrient dense food options. She is encouraged to increase water intake, goal 60 ounces/day. Discussed importance of increasing physical activity as tolerated. Plan to increase dose of Wegovy to 1 mg SC weekly and follow-up in 4 to 6 weeks. 03/28/2025: Weight: 208, BMI: 29.8 (-6lbs) 02/19/2025: Weight: 214, BMI: 30.7. (-1lb) 01/22/2025: Weight: 215.3, BMI: 30.9. All questions answered to the patient's satisfaction. Patient demonstrates understanding of diagnosis and treatments discussed. Follow-up at next scheduled appointment, sooner should any questions/concerns arise. Case discussed with collaborating physician Rand Zuniga who has reviewed the assessment/plan. Chart, medications, labs, and vital signs reviewed. Dictation completed with the use of [employer] voice recognition software, prone to medical misidentifications and grammatical errors. All errors are unintentional. Although the practitioner does try to identify and correct errors, some may be present. Please do not hesitate to contact the practitioner for clarification. Total time was 30 minutes spent with greater than 50% on coordination of care and patient education. 05/09/2025 Hyperlipidemia, unspecified hyperlipidemia type (ICD-10 - E78.5) Martha is a 59-year-old female with a PMH of HTN, HLD, depression that presents for weight management follow up. Reviewed [facility] holistic and medical approach to weight loss with emphasis on lifestyle modification. 05/09/2025: Weight: 207, BMI: 29.8 SECA reviewed, reveals minor increase in fat mass and loss of muscle mass. Discussed importance of prioritizing intake of healthier foods. Patient encouraged to avoid fried foods and work on incorporating nutrient dense food options. She is encouraged to increase water intake, goal 60 ounces/day. Discussed importance of increasing physical activity as tolerated. Plan to increase dose of Wegovy to 1 mg SC weekly and follow-up in 4 to 6 weeks. 03/28/2025: Weight: 208, BMI: 29.8 (-6lbs) 02/19/2025: Weight: 214, BMI: 30.7. (-1lb) 01/22/2025: Weight: 215.3, BMI: 30.9. All questions answered to the patient's satisfaction. Patient demonstrates understanding of diagnosis and treatments discussed. Follow-up at next scheduled appointment, sooner should any questions/concerns arise. Case discussed with collaborating physician Rand Zuniga who has reviewed the assessment/plan. Chart, medications, labs, and vital signs reviewed. Dictation completed with the use of [employer] voice recognition software, prone to medical misidentifications and grammatical errors. All errors are unintentional. Although the practitioner does try to identify and correct errors, some may be present. Please do not hesitate to contact the practitioner for clarification. Total time was 30 minutes spent with greater than 50% on coordination of care and patient education. 03/28/2025 Essential hypertension (ICD-10 - I10) Martha is a 59-year-old female with a PMH of HTN, HLD, depression that presents for weight management follow up. Reviewed [facility] holistic and medical approach to weight loss with emphasis on lifestyle modification. 03/28/2025: Weight: 208, BMI: 29.8 (-6lbs) SECA reviewed, reveals fat loss and mild loss of muscle mass. Patient encouraged to continue practicing portion control, prioritizing protein intake, and limiting intake of excess fatty foods/carbs. She is encouraged to continue hydrating adequately and exercising as tolerated. Because insurance will no longer cover Zepbound patient willing to transition to Wegovy. Sample of Wegovy 0.25 mg SC weekly Provided, if tolerated plan to increase to 0.5 mg SC weekly. Reviewed proper use/SE follow-up in 4-6 weeks. #HTN: BP elevated at 148/98. Discussed importance of antihypertensive compliance. Patient encouraged to continue monitoring at home. If consistently elevated >130/90 she understands to contact her PCP. 02/19/2025: Weight: 214, BMI: 30.7. (-1lb) 01/22/2025: Weight: 215.3, BMI: 30.9. All questions answered to the patient's satisfaction. Patient demonstrates understanding of diagnosis and treatments discussed. Follow-up at next scheduled appointment, sooner should any questions/concerns arise. Case discussed with collaborating physician Rand Zuniga who has reviewed the assessment/plan. Chart, medications, labs, and vital signs reviewed. Dictation completed with the use of [employer] voice recognition software, prone to medical misidentifications and grammatical errors. All errors are unintentional. Although the practitioner does try to identify and correct errors, some may be present. Please do not hesitate to contact the practitioner for clarification. Total time was 30 minutes spent with greater than 50% on coordination of care and patient education. 01/22/2025 Nutritional counseling (ICD-10 - Z71.3) Martha is a 59-year-old female with a PMH of HTN, HLD, depression that presents for weight management consult. Patient was reassured and welcomed to the practice. Discussed [facility] holistic and medical approach to weight loss with emphasis on lifestyle modification. Patient is educated that a healthy lifestyle aids in combating obesity as well as reducing the risk of developing obesity-related medical complications including but not limited to diabetes and cardiovascular disease. Detailed education provided about taking steps to initiate sustainable lifestyle changes including incorporating regular physical activity, making healthy diet choices, and prioritizing mental health. Information provided about literature including The Food Rules by Brian Guthrie and Eat Fat Get Lean by Dr Peter Marion. Handouts including lifestyle checklist, protein content of food, low calorie snacks, and cholesterol information sheet provided. Diagnostic testing/ SECA scale offered. Discussed the importance of regular SECA scale measurements to ensure healthy weight loss. 01/22/2025: Weight: 215.3, BMI: 30.9. Reviewed SECA/goals for implementing sustainable lifestyle changes. Patient is encouraged to increase physical activity, goal 8-10k steps/day. Also discussed the importance of strength training with proper safety/body mechanics for maintenance of muscle mass/bone health. Patient encouraged to drink 60-80oz water/day. Reviewed nutrition, recommending food diary x 1 week to ensure adequate caloric/protein intake. Goal of 80-100g protein/day. Reviewed risks, benefits, and side effects of weight management medications including phentermine, Topamax, Contrave, metformin, and GLP-1 agonist. Patient interested in GLP-1/GIP agonist Zepbound. Denies personal/family history of medullary thyroid cancer/M EN. Rx for Zepbound 2.5 mg SC weekly sent to pharmacy. Reviewed proper use, administration, and expectations for PA process/insurance coverage. After consultation and careful review of medical history, this patient would benefit from Zepbound based off of the following criteria met: Patient is over the age of 18 with a BMI of 30.9 additional comorbidities include HTN, HLD. Patient has trialed other methods of weight loss including improving diet and exercise without success. This medication is prescribed by or in consultation with a board-certified obesity and weight management physician (Dr. Agsutin Zuniga or Dr. Derek Zuniga). All questions answered to the patient's satisfaction. Patient demonstrates understanding of diagnosis and treatments discussed. Follow-up at next scheduled appointment, sooner should any questions/concerns arise. Case discussed with collaborating physician Rand Zuniga who has reviewed the assessment/plan. Chart, medications, labs, and vital signs reviewed. Dictation completed with the use of [employer] voice recognition software, prone to medical misidentifications and grammatical errors. All errors are unintentional. Although the practitioner does try to identify and correct errors, some may be present. Please do not hesitate to contact the practitioner for clarification. Total time was 60 minutes spent with greater than 50% on coordination of care and patient education. 02/19/2025 Mild depression (ICD-10 - F32.A) Martha is a 59-year-old female with a PMH of HTN, HLD, depression that presents for weight management follow up. Reviewed [facility] holistic and medical approach to weight loss with emphasis on lifestyle modification. 02/19/2025: Weight: 214, BMI: 30.7. Patient down 1 pound. SECA reviewed, reveals fat loss with improvement in muscle mass. Patient encouraged to continue making health-conscious diet choices and prioritizing protein intake. Discussed importance of regular eating habits in the setting of GLP-1 induced appetite suppression. She is encouraged to increase physical activity as tolerated given back injury. Plan to increase dose of the 0.5 mg SC weekly and follow-up in 4 weeks. #HTN: BP elevated at 138/96. Discussed importance of antihypertensive compliance. BP likely elevated in setting of current steroid use. Patient encouraged to continue monitoring. 01/22/2025: Weight: 215.3, BMI: 30.9. All questions answered to the patient's satisfaction. Patient demonstrates understanding of diagnosis and treatments discussed. Follow-up at next scheduled appointment, sooner should any questions/concerns arise. Case discussed with collaborating physician Rand Zuniga who has reviewed the assessment/plan. Chart, medications, labs, and vital signs reviewed. Dictation completed with the use of [employer] voice recognition software, prone to medical misidentifications and grammatical errors. All errors are unintentional. Although the practitioner does try to identify and correct errors, some may be present. Please do not hesitate to contact the practitioner for clarification. Total time was 30 minutes spent with greater than 50% on coordination of care and patient education. 06/13/2025 Hyperlipidemia, unspecified hyperlipidemia type (ICD-10 - E78.5) Martha is a 59-year-old female with a PMH of HTN, HLD, depression that presents for weight management follow up. Reviewed [facility] holistic and medical approach to weight loss with emphasis on lifestyle modification. 06/13/2025: Weight: 203.8, BMI: 29.2 (-5lbs) SECA reviewed, reveals 4.2 pounds of fat loss and mild improvement in muscle mass. Patient encouraged to avoid fried foods and work on incorporating nutrient dense food options. She is encouraged to increase water intake, goal 60 ounces/day. Discussed importance of increasing physical activity as tolerated. Plan to increase dose of Wegovy to 1.7 mg SC weekly and follow-up in 4 to 6 weeks. 05/09/2025: Weight: 207, BMI: 29.8 03/28/2025: Weight: 208, BMI: 29.8 (-6lbs) 02/19/2025: Weight: 214, BMI: 30.7. (-1lb) 01/22/2025: Weight: 215.3, BMI: 30.9. All questions answered to the patient's satisfaction. Patient demonstrates understanding of diagnosis and treatments discussed. Follow-up at next scheduled appointment, sooner should any questions/concerns arise. Case discussed with collaborating physician Rand Zuniga who has reviewed the assessment/plan. Chart, medications, labs, and vital signs reviewed. Dictation completed with the use of [employer] voice recognition software, prone to medical misidentifications and grammatical errors. All errors are unintentional. Although the practitioner does try to identify and correct errors, some may be present. Please do not hesitate to contact the practitioner for clarification. Total time was 30 minutes spent with greater than 50% on coordination of care and patient education. 05/09/2025 Mild depression (ICD-10 - F32.A) Martha is a 59-year-old female with a PMH of HTN, HLD, depression that presents for weight management follow up. Reviewed [facility] holistic and medical approach to weight loss with emphasis on lifestyle modification. 05/09/2025: Weight: 207, BMI: 29.8 SECA reviewed, reveals minor increase in fat mass and loss of muscle mass. Discussed importance of prioritizing intake of healthier foods. Patient encouraged to avoid fried foods and work on incorporating nutrient dense food options. She is encouraged to increase water intake, goal 60 ounces/day. Discussed importance of increasing physical activity as tolerated. Plan to increase dose of Wegovy to 1 mg SC weekly and follow-up in 4 to 6 weeks. 03/28/2025: Weight: 208, BMI: 29.8 (-6lbs) 02/19/2025: Weight: 214, BMI: 30.7. (-1lb) 01/22/2025: Weight: 215.3, BMI: 30.9. All questions answered to the patient's satisfaction. Patient demonstrates understanding of diagnosis and treatments discussed. Follow-up at next scheduled appointment, sooner should any questions/concerns arise. Case discussed with collaborating physician Rand Zuniga who has reviewed the assessment/plan. Chart, medications, labs, and vital signs reviewed. Dictation completed with the use of Dragon voice recognition software, prone to medical misidentifications and grammatical errors. All errors are unintentional. Although the practitioner does try to identify and correct errors, some may be present. Please do not hesitate to contact the practitioner for clarification. Total time was 30 minutes spent with greater than 50% on coordination of care and patient education. 06/13/2025 Mild depression (ICD-10 - F32.A) Martha is a 59-year-old female with a PMH of HTN, HLD, depression that presents for weight management follow up. Reviewed [facility] holistic and medical approach to weight loss with emphasis on lifestyle modification. 06/13/2025: Weight: 203.8, BMI: 29.2 (-5lbs) SECA reviewed, reveals 4.2 pounds of fat loss and mild improvement in muscle mass. Patient encouraged to avoid fried foods and work on incorporating nutrient dense food options. She is encouraged to increase water intake, goal 60 ounces/day. Discussed importance of increasing physical activity as tolerated. Plan to increase dose of Wegovy to 1.7 mg SC weekly and follow-up in 4 to 6 weeks. 05/09/2025: Weight: 207, BMI: 29.8 03/28/2025: Weight: 208, BMI: 29.8 (-6lbs) 02/19/2025: Weight: 214, BMI: 30.7. (-1lb) 01/22/2025: Weight: 215.3, BMI: 30.9. All questions answered to the patient's satisfaction. Patient demonstrates understanding of diagnosis and treatments discussed. Follow-up at next scheduled appointment, sooner should any questions/concerns arise. Case discussed with collaborating physician Rand Zuniga who has reviewed the assessment/plan. Chart, medications, labs, and vital signs reviewed. Dictation completed with the use of [employer] voice recognition software, prone to medical misidentifications and grammatical errors. All errors are unintentional. Although the practitioner does try to identify and correct errors, some may be present. Please do not hesitate to contact the practitioner for clarification. Total time was 30 minutes spent with greater than 50% on coordination of care and patient education. 02/19/2025 Nutritional counseling (ICD-10 - Z71.3) Martha is a 59-year-old female with a PMH of HTN, HLD, depression that presents for weight management follow up. Reviewed [facility] holistic and medical approach to weight loss with emphasis on lifestyle modification. 02/19/2025: Weight: 214, BMI: 30.7. Patient down 1 pound. SECA reviewed, reveals fat loss with improvement in muscle mass. Patient encouraged to continue making health-conscious diet choices and prioritizing protein intake. Discussed importance of regular eating habits in the setting of GLP-1 induced appetite suppression. She is encouraged to increase physical activity as tolerated given back injury. Plan to increase dose of the 0.5 mg SC weekly and follow-up in 4 weeks. #HTN: BP elevated at 138/96. Discussed importance of antihypertensive compliance. BP likely elevated in setting of current steroid use. Patient encouraged to continue monitoring. 01/22/2025: Weight: 215.3, BMI: 30.9. All questions answered to the patient's satisfaction. Patient demonstrates understanding of diagnosis and treatments discussed. Follow-up at next scheduled appointment, sooner should any questions/concerns arise. Case discussed with collaborating physician Rand Zuniga who has reviewed the assessment/plan. Chart, medications, labs, and vital signs reviewed. Dictation completed with the use of [employer] voice recognition software, prone to medical misidentifications and grammatical errors. All errors are unintentional. Although the practitioner does try to identify and correct errors, some may be present. Please do not hesitate to contact the practitioner for clarification. Total time was 30 minutes spent with greater than 50% on coordination of care and patient education. 03/28/2025 Hyperlipidemia, unspecified hyperlipidemia type (ICD-10 - E78.5) Martha is a 59-year-old female with a PMH of HTN, HLD, depression that presents for weight management follow up. Reviewed [facility] holistic and medical approach to weight loss with emphasis on lifestyle modification. 03/28/2025: Weight: 208, BMI: 29.8 (-6lbs) SECA reviewed, reveals fat loss and mild loss of muscle mass. Patient encouraged to continue practicing portion control, prioritizing protein intake, and limiting intake of excess fatty foods/carbs. She is encouraged to continue hydrating adequately and exercising as tolerated. Because insurance will no longer cover Zepbound patient willing to transition to Wegovy. Sample of Wegovy 0.25 mg SC weekly Provided, if tolerated plan to increase to 0.5 mg SC weekly. Reviewed proper use/SE follow-up in 4-6 weeks. #HTN: BP elevated at 148/98. Discussed importance of antihypertensive compliance. Patient encouraged to continue monitoring at home. If consistently elevated >130/90 she understands to contact her PCP. 02/19/2025: Weight: 214, BMI: 30.7. (-1lb) 01/22/2025: Weight: 215.3, BMI: 30.9. All questions answered to the patient's satisfaction. Patient demonstrates understanding of diagnosis and treatments discussed. Follow-up at next scheduled appointment, sooner should any questions/concerns arise. Case discussed with collaborating physician Rand Zuniga who has reviewed the assessment/plan. Chart, medications, labs, and vital signs reviewed. Dictation completed with the use of [employer] voice recognition software, prone to medical misidentifications and grammatical errors. All errors are unintentional. Although the practitioner does try to identify and correct errors, some may be present. Please do not hesitate to contact the practitioner for clarification. Total time was 30 minutes spent with greater than 50% on coordination of care and patient education. 03/28/2025 Mild depression (ICD-10 - F32.A) Martha is a 59-year-old female with a PMH of HTN, HLD, depression that presents for weight management follow up. Reviewed [facility] holistic and medical approach to weight loss with emphasis on lifestyle modification. 03/28/2025: Weight: 208, BMI: 29.8 (-6lbs) SECA reviewed, reveals fat loss and mild loss of muscle mass. Patient encouraged to continue practicing portion control, prioritizing protein intake, and limiting intake of excess fatty foods/carbs. She is encouraged to continue hydrating adequately and exercising as tolerated. Because insurance will no longer cover Zepbound patient willing to transition to Wegovy. Sample of Wegovy 0.25 mg SC weekly Provided, if tolerated plan to increase to 0.5 mg SC weekly. Reviewed proper use/SE follow-up in 4-6 weeks. #HTN: BP elevated at 148/98. Discussed importance of antihypertensive compliance. Patient encouraged to continue monitoring at home. If consistently elevated >130/90 she understands to contact her PCP. 02/19/2025: Weight: 214, BMI: 30.7. (-1lb) 01/22/2025: Weight: 215.3, BMI: 30.9. All questions answered to the patient's satisfaction. Patient demonstrates understanding of diagnosis and treatments discussed. Follow-up at next scheduled appointment, sooner should any questions/concerns arise. Case discussed with collaborating physician Rand Zuniga who has reviewed the assessment/plan. Chart, medications, labs, and vital signs reviewed. Dictation completed with the use of [employer] voice recognition software, prone to medical misidentifications and grammatical errors. All errors are unintentional. Although the practitioner does try to identify and correct errors, some may be present. Please do not hesitate to contact the practitioner for clarification. Total time was 30 minutes spent with greater than 50% on coordination of care and patient education. 06/13/2025 Nutritional counseling (ICD-10 - Z71.3) Martha is a 59-year-old female with a PMH of HTN, HLD, depression that presents for weight management follow up. Reviewed [facility] holistic and medical approach to weight loss with emphasis on lifestyle modification. 06/13/2025: Weight: 203.8, BMI: 29.2 (-5lbs) SECA reviewed, reveals 4.2 pounds of fat loss and mild improvement in muscle mass. Patient encouraged to avoid fried foods and work on incorporating nutrient dense food options. She is encouraged to increase water intake, goal 60 ounces/day. Discussed importance of increasing physical activity as tolerated. Plan to increase dose of Wegovy to 1.7 mg SC weekly and follow-up in 4 to 6 weeks. 05/09/2025: Weight: 207, BMI: 29.8 03/28/2025: Weight: 208, BMI: 29.8 (-6lbs) 02/19/2025: Weight: 214, BMI: 30.7. (-1lb) 01/22/2025: Weight: 215.3, BMI: 30.9. All questions answered to the patient's satisfaction. Patient demonstrates understanding of diagnosis and treatments discussed. Follow-up at next scheduled appointment, sooner should any questions/concerns arise. Case discussed with collaborating physician Rand Zuniga who has reviewed the assessment/plan. Chart, medications, labs, and vital signs reviewed. Dictation completed with the use of [employer] voice recognition software, prone to medical misidentifications and grammatical errors. All errors are unintentional. Although the practitioner does try to identify and correct errors, some may be present. Please do not hesitate to contact the practitioner for clarification. Total time was 30 minutes spent with greater than 50% on coordination of care and patient education. 05/09/2025 Nutritional counseling (ICD-10 - Z71.3) Martha is a 59-year-old female with a PMH of HTN, HLD, depression that presents for weight management follow up. Reviewed [facility] holistic and medical approach to weight loss with emphasis on lifestyle modification. 05/09/2025: Weight: 207, BMI: 29.8 SECA reviewed, reveals minor increase in fat mass and loss of muscle mass. Discussed importance of prioritizing intake of healthier foods. Patient encouraged to avoid fried foods and work on incorporating nutrient dense food options. She is encouraged to increase water intake, goal 60 ounces/day. Discussed importance of increasing physical activity as tolerated. Plan to increase dose of Wegovy to 1 mg SC weekly and follow-up in 4 to 6 weeks. 03/28/2025: Weight: 208, BMI: 29.8 (-6lbs) 02/19/2025: Weight: 214, BMI: 30.7. (-1lb) 01/22/2025: Weight: 215.3, BMI: 30.9. All questions answered to the patient's satisfaction. Patient demonstrates understanding of diagnosis and treatments discussed. Follow-up at next scheduled appointment, sooner should any questions/concerns arise. Case discussed with collaborating physician Rand Zuniga who has reviewed the assessment/plan. Chart, medications, labs, and vital signs reviewed. Dictation completed with the use of [employer] voice recognition software, prone to medical misidentifications and grammatical errors. All errors are unintentional. Although the practitioner does try to identify and correct errors, some may be present. Please do not hesitate to contact the practitioner for clarification. Total time was 30 minutes spent with greater than 50% on coordination of care and patient education. 03/28/2025 Nutritional counseling (ICD-10 - Z71.3) Martha is a 59-year-old female with a PMH of HTN, HLD, depression that presents for weight management follow up. Reviewed [facility] holistic and medical approach to weight loss with emphasis on lifestyle modification. 03/28/2025: Weight: 208, BMI: 29.8 (-6lbs) SECA reviewed, reveals fat loss and mild loss of muscle mass. Patient encouraged to continue practicing portion control, prioritizing protein intake, and limiting intake of excess fatty foods/carbs. She is encouraged to continue hydrating adequately and exercising as tolerated. Because insurance will no longer cover Zepbound patient willing to transition to Wegovy. Sample of Wegovy 0.25 mg SC weekly Provided, if tolerated plan to increase to 0.5 mg SC weekly. Reviewed proper use/SE follow-up in 4-6 weeks. #HTN: BP elevated at 148/98. Discussed importance of antihypertensive compliance. Patient encouraged to continue monitoring at home. If consistently elevated >130/90 she understands to contact her PCP. 02/19/2025: Weight: 214, BMI: 30.7. (-1lb) 01/22/2025: Weight: 215.3, BMI: 30.9. All questions answered to the patient's satisfaction. Patient demonstrates understanding of diagnosis and treatments discussed. Follow-up at next scheduled appointment, sooner should any questions/concerns arise. Case discussed with collaborating physician Rand Zuniga who has reviewed the assessment/plan. Chart, medications, labs, and vital signs reviewed. Dictation completed with the use of [employer] voice recognition software, prone to medical misidentifications and grammatical errors. All errors are unintentional. Although the practitioner does try to identify and correct errors, some may be present. Please do not hesitate to contact the practitioner for clarification. Total time was 30 minutes spent with greater than 50% on coordination of care and patient education. Plan Of Treatment Next Appt Details Provider Name:ZIGGY Mendez, 07/09/2025 01:15:00 PM, [address] [facility], [facility] [address], [place], [address], Insurance Providers Payer Name Payer Address Payer Phone Subscriber Number Group Number Insured Name Patient Relationship to Insured Coverage Start Date Coverage End Date [facility] [address] [place] [address] [phone] [id number] Martha García Self - patient is the insured 06/04/202 4 Medications Administered Medication Instructions Date of Administration Dosage Notes [facility] 01/22/2025 1 mL Medical (General) History Medical History History ICD Code Obesity (BMI 30.0-34.9) E66.811 Essential hypertension I10 Hyperlipidemia, unspecified hyperlipidem ia type E78.5 Mild depression F32.A Surgical History Surgery Date(Month/Year) Bilateral cataract removal 2024 Hysterectomy 2005
--- OUTSIDE RECORDS SUMMARY | 2025-06-27 12:03 | XMS_ITS | Encounter Summary ---
Author Organization [employer] Address [address] [place] [address] Care Team Providers Care Hand Method Lasting Machine Operator Name Role Phone Sarah Price MD Primary Care Provider [phone] Reason for Visit * Reason Onset Date Comments High Blood Pressure 06/06/2025 Encounter Details Date Type Department Care Team (Late st Contact Info) Description 06/06/2025 Telephone [facility] - [facility] [address] [facility] [address] [place] [address] Hortenica Boss MD [address] [place] [address] [address] [place] [address] Social History Tobacco Use Types Packs/Day Years Used Date Smoking Tobacco: Every Day Cigarettes Smokeless Tobacco: Never Alcohol Use Standard Drinks/Week Comments Yes 0 (1 standard drink = 0.6 oz pur e alcohol) a pint a day Comments No Sex and Gender Information Value Date Recorded Sex Assigned at Not on file Legal Sex Female 7:28 AM EST Gender Identity Not on file Sexual Orientation Not on file documented as of this encounter Progress Notes * Nkechi Holly RN - 06/10/2025 4:42 PM EDT Sent updated amlodipine script to pt's preferred pharmacy. Pt made aware. Pt verbalized understanding. * Nkechi Holly RN - 06/10/2025 11:29 AM EDT Spoke w/pt. Reviewed Kerri's recommendations. Reinforced proper BP measurement technique and ER precautions. Encouraged pt to reach out to primary care in case she needs refill for amlodipine. Pt willkeep log of BP and touch base next week. * Nkechi Holly RN - 06/07/2025 8:46 AM EDT Left voicemail for patient to call back. * Kerri Batres NP - 06/07/2025 8:25 AM EDT She definitely needs to reduce the amount of alcohol, smoking and NSAID use. Have her increase amlodipine to 10 mg daily. Continue to monitor BP and call back if not improved, goal <130/80. Thank you. * Nkechi Holly RN - 06/06/2025 4:26 PM EDT Spoke w/pt. MANUEL: 05/07/25 w/DG. Pt had elevated BP's at visit as well 144/110. Pt's BP at surgeon's office was 167/111. Pt does not have BP cuff at home. Pt will try to purchase one today. Reviewed w/pt importance of checking BP 2 hours after taking meds along w/proper set up for BP check. Pt continues to smoke 1PPD and drink 1/2 pint ETOH daily. Pt aware of needing to reduce ETOH and tobacco use. Denies any other illicit substances. Pt reports bilateral ankle edema, unchanged from MANUEL. Denies CP, dizziness, headaches. SOB on exertion, but not worsening. Pt reports she's taking 800 mg ibuprofen since January. PCP rechecked BMP and understandably expressedconcern for kidney function. Her referred her to pain specialist for compression fx L2, pending appt in June. Reviewed meds. Continues to take losartan 50 mg daily along w/all other meds. Denies missed doses of meds. ER precautions reviewed. Pt aware d/t late nature of call that she will not get a response tonight.Pt verbalized understanding. * Doreen Ghosh - 06/06/2025 3:51 PM EDT Patient called and stated that she went to one of her doctors appointments today, and they said herblood pressure was 167/111, and they took it again before she left and it was 161/112. Patient saidnorah went to her primary care last week and it was also high when she went there too. She is concerned and would like a call back at [phone]. documented in this encounter Plan of Treatment Upcoming Encounters Date Type Department Care Team (Late st Contact Info) Description 08/29/2025 7:40 AM EST Office Visit [facility] - [facility] [address] [facility] 154 [place] [phone] Kerri Batres NP [address] [place] [address] [address] [place] [address] 09/03/2025 3:00 PM EST Procedure visit General Surgery - [place] 175 [facility] 110 [place] [address] Jevon Castellon MD 175 [facility] 110 [place] [address] 10/24/2025 3:00 PM EDT Office Visit Internal Medicine - [facility] [address] [place], [place] [phone] Sarah Price MD [address] [place], [place] documented as of this encounter Visit Diagnoses Not on filedocumented in this encounter Discontinued Medications Medication Sig Discontinue Reason Start Date End Da te docusate sodium (COLACE) 50 mg capsule 1 capsule (50 mg total) 2 (two) times a day. Entered in Error 06/06/2025 documented as of this encounter Historical Medications * This list may reflect changes made after this encounter. multivitamin with minerals tablet Take 1 tablet by mouth 1 (one) time each day. ibuprofen (ADVIL,MOTRIN) 800 mg tablet Take 1 tablet (800 mg total) by mouth 1 (one) time each day. docusate sodium (COLACE) 50 mg capsule 1 capsule (50 mg total) 2 (two) times a day. 06/06/2025 added in this encounter Care Teams Hand Method Lasting Machine Operator Relationship Specialty Start Date End Date Sarah Price MD [address] [place] [address] PCP - General Internal Medicine 04/25/25 documented as of this encounter
--- OUTSIDE RECORDS SUMMARY | 2025-06-27 12:03 | XMS_ITS | Encounter Summary ---
Author Organization [facility] Address [address] [place] [address] Care Team Providers Care Sketch Liner Name Role Phone Sarah Price MD Primary Care Provider [phone] Reason for Visit * Reason Onset Date Comments Medication Problem 06/10/2025 Encounter Details Date Type Department Care Team (Late st Contact Info) Description 06/10/2025 Telephone Internal Medicine - [place] [address] [place], [place] [phone] Sarah Price MD [address] [place], [place] Social History Tobacco Use Types Packs/Day Years [...] on file documented as of this encounter Ordered Prescriptions Prescription Sig Dispense Quantity Refills Last Filled Start Date End Date amLODIPine (NORVASC) 10 mg tablet Take 1 tablet (10 mg total) by mouth 1 (one) time each day. 30 each 06/10/2025 07/10/2025 documented in this encounter Progress Notes * Teresita Killian - 06/10/2025 11:35 AM EDT Medication Problem: What is the name of the medication patient is having a problem with?: amlodipine What is the problem?: pts At [facility] asked pt to call pcp to increase dose to10 mg once daily and will need it filled. Who is calling about the problem? : The patient Is this a NEW medication?: no How long has the patient been taking this medication? unsure Who prescribed this medication for the patient? Nancy March Who is patients PCP?: Sarah Price MD Payor: [facility] / Plan: [facility] / Product Type: *No Product type* / documented in this encounter Plan of Treatment Upcoming Encounters Date Type Department Care Team (Late st Contact Info) Description 08/29/2025 7:40 AM EST Office Visit [facility] - [facility] [address] [facility] [address] [place] [address] Kerri Batres NP [address] [place] [address] [address] [place] [address] 09/03/2025 3:00 PM EST Procedure visit General Surgery - [place] 175 [facility] 110 [place] [address] Jevon Castellon MD 175 [facility] 110 [place] [address] 10/24/2025 3:00 PM EDT [facility] [address] [place], [place] [phone] Sarah Price MD [address] [place], [place] documented as of this encounter Visit Diagnoses Not on filedocumented in this encounter Discontinued Medications Medication Sig Discontinue Reason Start Date End Da te amLODIPine (NORVASC) 5 mg tablet TAKE 1 TABLET(5 MG) BY MOUTH 1 TIME EACH DAY 01/15/2025 06/10/2025 documented as of this encounter Care Teams Sketch Liner Relationship Specialty Start Date End Date Sarah Price MD 305 [facility] [place] [address] PCP - General Internal Medicine 04/25/25 documented as of this encounter
--- OUTSIDE RECORDS SUMMARY | 2025-06-27 12:03 | XMS_ITS | Encounter Summary ---
Author Organization [facility] Address [address] [place] [address] Care Team Providers Care Video Games Mechanic Name Role Phone Sarah Price MD Primary Care Provider [phone] Encounter Details Date Type Department Care Team (Late st Contact Info) Description 06/04/2025 Results Follow-Up [facility] [address] [place] [address] Benton Quintanilla PA [address] [place] [address] Social History Tobacco Use Types Packs/Day Years [...] on file documented as of this encounter Plan of Treatment Upcoming Encounters Date Type Department Care Team (Late st Contact Info) Description 08/29/2025 7:40 AM EST Office Visit [facility] - [facility] [address] [facility] 154 [place] [address] Kerri Batres NP [address] [place] [address] [place] [phone] 09/03/2025 3:00 PM EST Procedure visit General Surgery - [place] [address] [address] Jevon Castellon MD [address] [address] 10/24/2025 3:00 PM EDT Office Visit Internal Medicine - [facility] [address] [place], [place] [phone] Sarah Price MD [address] [place], [place] documented as of this encounter Visit Diagnoses Not on filedocumented in this encounter Care Teams Video Games Mechanic Relationship Specialty Start Date End Date Sarah Price MD [address] [place] [address] PCP - General Internal Medicine 04/25/25 documented as of this encounter
== END 2025-06-27 11:16 | disposition home or self-care (01) ==
LOC: HO.PMC 10:04
PROVIDERS: PCP Nurse Practitioner; Visit Provider Nurse Practitioner Family
DX: M47.817 Spondylosis without myelopathy or radiculopathy, lumbosacral region (principal); M54.50 Low back pain, unspecified; G89.29 Other chronic pain; M53.3 Sacrococcygeal disorders, not elsewhere classified; M46.1 Sacroiliitis, not elsewhere classified
CPT/HCPCS: 99214; G2211

== ENCOUNTER 2025-07-10 10:38 | Outpatient (AMB) | payer OTHER, SELFPAY ==
--- NOTE | 2025-07-10 10:41 | A.PHYSOV ---
Vital Signs 07/10/25 10:43 Height 5 ft 9 in Weight 202 lb BMI 29.8 Intake Visit Reasons: RE-EVAL TO RTW Intake Note: Patient is a 59 year old female in office today for a return to work note. Chemical Waste Management Technician Required: No Allergies acetaminophen (From Percocet) Allergy (Unknown, Verified 07/10/25 10:42) shaking oxycodone (From Percocet) Allergy (Unknown, Verified 07/10/25 10:42) shaking HPI Comments Details: History of Present Illness The patient is a 59 year old individual presenting for a follow-up visit for severe lower back pain that began after a fall in January 2025 while carrying a basket of laundry. Following the fall, the patient was evaluated in the emergency room and underwent CT imaging of the brain, cervical spine, and lumbosacral spine on January 21, 2025. The CT scan showed an L2 minor compression fracture, although the patient's symptomatic presentation was not consistent with this finding. Imaging also revealed bone marrow edema in the sacral ala and central lower sacral vertebral body, which was suspicious for a sacral insufficiency fracture. The patient reports severe pain in the lower back upon standing but denies any changes in bowel or bladder habits, fever, or chills. The patient attempted three sessions of physical therapy but had to discontinue due to severe, incapacitating pain. The patient takes ibuprofen with minimal benefit and has declined narcotics. The patient has been out of work and very uncomfortable since the injury. Since her last appointment with me she has been evaluated by the [facility] pain management program. Radiofrequency neurotomy procedure is being planned I suspect for sacroiliac joint. As of now patient states that she is not able to return to work because of the persistent pain. She is requesting another out of work note. She can not return to work even with restricted duty. 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 Pain Description - Onset: The pain started after a fall in January 2025. - Location: Lower back. - Severity and Character: The pain is described as severe and incapacitating. - Exacerbating Factors: Pain is worse with standing and was exacerbated by physical therapy. - Relieving Factors: Ibuprofen has been minimally helpful. - Impact on Function: The patient discontinued physical therapy and has been out of work due to the pain. Results - CT brain, cervical spine, lumbosacral spine (January 21, 2025): Showed a minor L2 compression fracture. - Imaging: Revealed bone marrow edema in the sacral ala and central lower sacral vertebral body, suspicious for a sacral insufficiency fracture. [facility] Medical History (Updated 07/10/25 @ 11:06 by Zuhair Franco DO) Sacroiliitis Sacroiliac dysfunction Sacral insufficiency fracture Dyspnea on exertion Constipation Cardiomyopathy Major depressive disorder Compression fracture of L2 Tobacco use disorder Colon polyp Alcoholism Allergic rhinitis Hyperlipidemia Arm pain Multiple thyroid nodules Hypertension Aortic aneurysm Chest pain LVH (left ventricular hypertrophy) Surgical History (Updated 06/27/25 @ 11:02 by Aleisha Johnson) History of hysterectomy Social History (Updated 07/10/25 @ 10:43 by Quynh Gonzalez MA) Household Members: None Alcohol intake: current Alcohol intake frequency: 3 or more drinks per day Comment: 1 pint daily Tobacco use type: Cigarette Cigarette Packs Per Day: 1 Use of substances other than those prescribed or required for medical reasons: No Review of Systems Narrative Review of Systems - Musculoskeletal: Reports severe pain in the lower back while standing. - Genitourinary: Denies any change in bladder habits. - Gastrointestinal: Denies any change in bowel habits. - Constitutional: Denies fever or chills. Physical Exam Exam Exam: Physical Exam Patient appears to be in no acute distress, tenderness with palpation over right SI sulcus and sacrum with palpation. Positive for right SI compression test. Neurological examination was nonfocal. She ambulates without antalgia. Lumbar extension was restricted. Dural tension signs were negative. Patient demonstrated no upper motor neuron signs. Vital Signs: BMI result Body Mass Index 29.8 Assessment & Plan Assessment & Plan (1) Sacral insufficiency fracture: Code(s): M84.48XA - Pathological fracture, other site, initial encounter for fracture Category: Medical Qualifiers: Encounter type: subsequent encounter Fracture healing: with routine healing Qualified Code(s): M84.48XD - Pathological fracture, other site, subsequent encounter for fracture with routine healing (2) Sacroiliac dysfunction: Code(s): M53.3 - Sacrococcygeal disorders, not elsewhere classified Category: Medical (3) Sacroiliitis: Code(s): M46.1 - Sacroiliitis, not elsewhere classified Category: Medical Plan Pain Management - Affect: The patient is very uncomfortable and reports the pain is incapacitating. - Analgesia: The patient takes ibuprofen, which provides minimal help, and has declined narcotics. - Activities of Daily Living: The patient has been out of work since the injury and had to stop physical therapy. Plan Patient was informed and verbally consented to the use of an ambient scribe for clinic note documentation during this visit. Discussion Notes I will provide her with another out of work note through September. Return to work on 10/07/2025 pending re-evaluation. She will follow up with [place] pain management program for possible radiofrequency procedure. Patient Instructions Coding Level of Care Code Est Pt Level 3 (52692) Complex visit Add On G2211 Diagnoses Sacral insufficiency fracture with routine healing, subsequent encounter M84.48XD Encounter type: subsequent encounter Fracture healing: with routine healing Sacroiliac dysfunction M53.3 Sacroiliitis M46.1
[2025-07-10 10:43] VITALS: BMI 29.8
--- OUTSIDE RECORDS SUMMARY | 2025-07-10 12:47 | XMS_ITS | Encounter Summary ---
Author Organization [facility] Address [address] [place] [address] Care Team Providers Care Television Audio Engineer Name Role Phone Anabel Rapp MD Primary Care Provider Hortencia Koch MD Unavailable Nella Soria PA-C Unavailable Unavailab le Encounter Details Date Type Department Care Team Description 06/18/2022 [facility] Medical Records [address] [place] [address] Social History Tobacco Use Types Packs/Day Years Used Date Smoking Tobacco: Every Day Cigarettes 1 43 Started: 1980 Smokeless Tobacco: Never Comments:01/04/24: Current sm oker. Started @ age 23. Smokes 1 ppd. АЛЕКСАНДР: 35 Alcohol Use Standard Drinks/Week Comments Not Currently 7 (1 standard drink = 0.6 oz pure alcohol) 06/20/23 states she drinks 1-2 glasses of whine nightly . 1 pint VSOP daily for about 1 year, quit Aug 2008; 4-5 drinks per mo 2014 Social Isolation Answer Date Recorded In a typical week, how many times do you talk on the phone with family, friends, or neighbors? Twice a week 06/28/2019 How often do you get together with friends or re latives? Once a week 06/28/2019 How often do you attend synagogue or congregational serv ices? Never 06/28/2019 Do you belong to any clubs o r organizations such as synagogue groups, unions, fraternal or athletic groups, or school groups? No 06/28/2019 How often do you attend meet ings of the clubs or organizations you belong to? Never 06/28/2019 Are you now , , , , never or living with a partner? Never 06/28/2019 Physical Activity Answer Date Recorded On average, how many days pe r week do you engage in moderate to strenuous exercise (like walking fast, running, jogging, dancing, swimming, biking, or other activities that cause a light or heavy sweat)? 0 days 06/28/2019 On average, how many minutes do you engage in exercise at this level? Not asked Stress Answer Date Recorded Do you feel stress - tense, restless, nervous, or anxious, or unable to sleep at night because your mind is troubled all the time - these days? Not at all 06/28/2019 Financial Resource Strain Answer Date R ecorded How hard is it for you to pa y for the very basics like food, housing, medical care, and heating? Not hard at all 06/28/2019 Intimate Partner Violence Answer Date R ecorded Within the last year, have y ou been afraid of your partner or ex-partner? No 06/28/2019 Within the last year, have y ou been humiliated or emotionally abused in other ways by your partner or ex-partner? No Within the last year, have y ou been kicked, hit, slapped, or otherwise physically hurt by your partner or ex-partner? No 06/28/2019 Within the last year, have y ou been raped or forced to have any kind of sexual activity by your partner or ex-partner? No 06/28/2019 Food Insecurity Answer Date Recorded Within the past 12 months, y ou worried that your food would run out before you got money to buy more. Never true 06/28/2019 Within the past 12 months, t he food you bought just didn't last and you didn't have money to get more. Never true 06/28/2019 Transportation Needs Answer Date Record ed In the past 12 months, has l ack of transportation kept you from medical appointments or from getting medications? No 06/15 In the past 12 months, has l ack of transportation kept you from meetings, work, or getting things needed for daily living? No 06/28/2019 Sex Assigned at Date Recorded Not on file Job Start Date Occupation Industry Not on file Not on file Not on file COVID-19 Exposure Response Date Recorded In the last 10 days, have arnaldo u been in contact with someone who was confirmed or suspected to have Coronavirus/COVID-19? No / Unsure 06/01/2022 1:59 PM EDT documented as of this encounter Plan of Treatment Not on file documented as of this encounter Procedures Procedure Name Priority Date/Time Associated Diagnosis Comments OUTSIDE CT Routine 06/18/2022 documented in this encounter Results * OUTSIDE CT (06/18/2022) Provider Default RADIOLOGY documented in this encounter Visit Diagnoses Not on filedocumented in this encounter Care Teams Television Audio Engineer Relationship Specialty Start Date End Date Anabel Rapp MD PCP - General Family Practice 05/07/21 Hortencia Boss MD Specialist Cardiology 03/02/22 Nella Soria PA-C Cardiology 04/14/22 documented as of this encounter
--- OUTSIDE RECORDS SUMMARY | 2025-07-10 12:47 | XMS_ITS | Encounter Summary ---
Author Organization [facility] Address [address] [place] [address] Care Team Providers Care Spring Winder Name Role Phone Anabel Rapp MD Primary Care Provider Hortencia Koch MD Unavailable Nella Soria PA-C Unavailable Unavailab le Reason for Visit * Reason Comments E-prescribe Rx Request [facility]G Encounter Details Date Type Department Care Team Description 12/18/2023 Refill Cardio PVC POC [address] [facility] [address] [place] [address] Hortencia Boss MD [address] [place] [address] [phone] E-prescribe Rx Request (COREG ) Social History Tobacco Use Types Packs/Day Years Used Date Smoking Tobacco: Every Day Cigarettes 1 43 Started: 1980 Smokeless Tobacco: Never Comments:1 pack daily Alcohol Use Standard Drinks/Week Comments Yes 2 (1 standard drink = 0.6 oz pure [...] week 06/28/2019 How often do you attend judaism or buddhism serv ices? Never 06/28/2019 Do you belong to any clubs o r organizations such as judaism groups, unions, fraternal or athletic groups, or [...] file Not on file Not on file documented as of this encounter Miscellaneous Notes * Telephone Encounter - Viktoria Long C.M.A. - 12/19/2023 10:58 AM EDT Last [facility] visit Dr Boss For Access LVH, HTN, CM Return in about 1 year (around 06/20/2024). documented in this encounter Plan of Treatment Not on file documented as of this encounter Visit Diagnoses Not on filedocumented in this encounter Care Teams Spring Winder Relationship Specialty Start Date End Date Anabel Rapp MD PCP - General Family Practice 05/07/21 Hortencia Boss MD Specialist Cardiology 03/02/22 Nella Soria PA-C Cardiology 04/14/22 documented as of this encounter
--- OUTSIDE RECORDS SUMMARY | 2025-07-10 12:47 | XMS_ITS | Encounter Summary ---
Author Organization [facility] Address [address] [place] [address] Care Team Providers Care Tool Room Gear Machine Operator Name Role Phone Anabel Rapp MD Primary Care Provider Hortencia Koch MD Unavailable Nella Soria PA-C Unavailable Unavailab le Encounter Details Date Type Department Care Team Description 09/24/2022 Telephone Cardio PVC POC [address] [facility] [address] [place] [address] Hortencia Boss MD [address] [place] [address] Social History Tobacco Use Types Packs/Day Years Used Date Smoking Tobacco: Every Day Cigarettes 0.5 Smokeless Tobacco: Never Alcohol Use Standard Drinks/Week Comments Yes 0 (1 standard drink = 0.6 oz pure alcohol) 1 pint VSOP daily for about 1 year, quit Aug 2008; 4-5 drinks per mo 2014 Social Isolation Answer Date Recorded In a typical week, how many times do you talk on the phone with family, friends, or neighbors? Twice a week 06/28/2019 How often do you get together with friends or re latives? Once a week 06/28/2019 How often do you attend methodist or samaritan serv ices? Never 06/28/2019 Do you belong to any clubs o r organizations such as methodist groups, unions, fraternal or athletic groups, or [...] Recorded In the last 10 days, have yo u been in contact with someone who was confirmed or suspected to have Coronavirus/COVID-19? No / Unsure 09/21/2022 3:25 PM EST documented as of this encounter Miscellaneous Notes * Telephone Encounter - Tawnya Gonzales RN - 09/24/2022 8:44 AM EST Patient calling back this AM to f/u on rescheduling her Cardiac MRI. Pt does want to move forward with the MRI. Best number during the day to contact her is [phone] until 3pm, after 3 pm can call her cell. documented in this encounter Plan of Treatment Not on file documented as of this encounter Visit Diagnoses Not on filedocumented in this encounter Care Teams Tool Room Gear Machine Operator Relationship Specialty Start Date End Date Anabel Rapp MD PCP - General Family Practice 05/07/21 Hortencia Boss MD Specialist Cardiology 03/02/22 Nella Soria PA-C Cardiology 04/14/22 documented as of this encounter
--- OUTSIDE RECORDS SUMMARY | 2025-07-10 12:47 | XMS_ITS | Encounter Summary ---
Author Organization [facility] Address [address] [place] [address] Care Team Providers Care Capsule Inspector Name Role Phone Anabel Rapp MD Primary Care Provider Hortencia Koch MD Unavailable Nella Soria PA-C Unavailable Unavailab le Reason for Visit * Reason Onset Date Comments Faxed Refill 12/19/2023 Encounter Details Date Type Department Care Team Description 12/19/2023 Refill Medicine/Pediatrics - [place] [address] [place] [phone] Anabel Rapp MD Faxed Refill Social History Tobacco Use Types Packs/Day Years [...] week 06/28/2019 How often do you attend tenriism or rastafarian serv ices? Never 06/28/2019 Do you belong to any clubs o r organizations such as tenriism groups, unions, fraternal or athletic groups, or [...] encounter Miscellaneous Notes * Telephone Encounter - Klraissa Taylor M.A. - 12/19/2023 12:08 PM EDT Not appropriate documented in this encounter Plan of Treatment Not on file documented as of this encounter Visit Diagnoses Not on filedocumented in this encounter Care Teams Capsule Inspector Relationship Specialty Start Date End Date Anabel Rapp MD PCP - General Family Practice 05/07/21 Hortencia Boss MD Specialist Cardiology 03/02/22 Nella Soria PA-C Cardiology 04/14/22 documented as of this encounter
--- OUTSIDE RECORDS SUMMARY | 2025-07-10 12:47 | XMS_ITS | Encounter Summary ---
Author Organization [facility] Address [address] [place] [address] Care Team Providers Care Strawhat Sizer Name Role Phone Anabel Rapp MD Primary Care Provider Hortencia Koch MD Unavailable Nella Soria PA-C Unavailable Unavailab le Reason for Visit * Reason Onset Date Comments External Sleep Study Request 12/15/2023 Sle ep study Encounter Details Date Type Department Care Team Description 12/15/2023 Telephone Adult Medicine [address] [address] Anabel Rapp MD External Sleep Study Request (Sleep study ) Social History Tobacco Use Types Packs/Day [...] week 06/28/2019 How often do you attend holiness or yazidism serv ices? Never 06/28/2019 Do you belong to any clubs o r organizations such as holiness groups, unions, fraternal or athletic groups, or [...] encounter Miscellaneous Notes * Telephone Encounter - Noemí [place] Kathy - 12/15/2023 6:51 AM EDT HNE no auth required home study [id number] Order and benefits faxed to [employer] for scheduling. They will contact pt. Notification letter sent. documented in this encounter Plan of Treatment Not on file documented as of this encounter Visit Diagnoses Not on filedocumented in this encounter Care Teams Strawhat Sizer Relationship Specialty Start Date End Date Anabel Rapp MD PCP - General Family Practice 05/07/21 Hortencia Boss MD Specialist Cardiology 03/02/22 Nella Soria PA-C Cardiology 04/14/22 documented as of this encounter
--- OUTSIDE RECORDS SUMMARY | 2025-07-10 12:47 | XMS_ITS | Encounter Summary ---
Author Organization [facility] Address [address] [place] [address] Care Team Providers Care Product Support Specialist Name Role Phone Peter Allen MD Primary Care Provider [phone] Garry Lucero NP Primary Care Provider [phone] Anabel Rapp MD Primary Care Provider Hortencia Koch MD Unavailable Nella Soria PA-C Unavailable Unavailab le Encounter Details Date Type Department Care Team Description 02/27/2021 Orders Only Medical Records [address] [place] [address] Katalina Valdez MD [address] [place] [address] Social History Tobacco Use Types Packs/Day Years Used Date Smoking Tobacco: Every Day Cigarettes 1 Last attempted to quit: 08/15/2010 Smokeless Tobacco: Never Comments:started age 23 Stop ped using E Cig 2017 Alcohol Use Standard Drinks/Week Comments Yes 0 [...] week 06/28/2019 How often do you attend confucianism or episcopalian serv ices? Never 06/28/2019 Do you belong to any clubs o r organizations such as confucianism groups, unions, fraternal or athletic groups, or [...] as of this encounter Progress Notes * Milton Valdez MD - 02/27/2021 5:50 PM EDT Dear Ms. García,The polyp(s) that were removed during your colonoscopy were precancerous, but benign. Fortunately, we removed them and therefore, they will not cause any more problems in the future.Based on the number, the size, and the features of the polyp(s) removed, I recommend a follow-up colonoscopy in 5 years. Before, the 5 years are due, we will send you a reminder in the mail asking you to contact our office to have the colonoscopy scheduled. I would like to personally thank you for allowing us to take care of you. Please don't hesitate to call us for any questions or concerns. Regards, Angela Valdez MD Board Certified Gastroenterology and Internal Medicine Transplant Hepatology [facility] documented in this encounter Plan of Treatment Not on file documented as of this encounter Procedures Procedure Name Priority Date/Time Associated Diagnosis Comments OUTSIDE PATHOLOGY Routine 02/23/2021 documented in this encounter Results * OUTSIDE PATHOLOGY (02/23/2021) Katalina Valdez MD OUTSIDE LAB documented in this encounter Visit Diagnoses Not on filedocumented in this encounter Care Teams Product Support Specialist Relationship Specialty Start Date End Date Peter Allen MD [address] [place] [address] PCP - General Internal Medicine 07/03/20 04/30/21 Garry Lucero NP [address] [place] [address] PCP - General Internal Medicine 05/01/21 05/06/21 Anabel Rapp MD [address] [place] [address] PCP - General Family Practice 05/07/21 Hortencia Boss MD [address] [place] [address] Specialist Cardiology 03/02/22 Nella Soria PAPelonC [address] [place] [address] Cardiology 04/14/22 documented as of this encounter
--- OUTSIDE RECORDS SUMMARY | 2025-07-10 12:47 | XMS_ITS | Encounter Summary ---
Author Organization [facility] Address [address] [place] [address] Care Team Providers Care Save All Operator Name Role Phone Anabel Rapp MD Primary Care Provider Hortencia Koch MD Unavailable Nella Soria PA-C Unavailable Unavailab le Encounter Details Date Type Department Care Team Description 01/05/2024 Orders Only [facility] Lung Screening Program [place] [address] [facility] [address] [place] [phone] Mary Gar MD [address] [address] History of tobacco use, presenting hazards to health; Encounter for screening for lung cancer Social History Tobacco Use Types Packs/Day Years Used Date Smoking Tobacco: Every Day Cigarettes 1 43 Started: 1980 Smokeless Tobacco: Never Comments:01/04/24: Current sm oker. Started @ age 23. Smokes 1 ppd. АЛЕКСАНДР: 35 Alcohol Use Standard Drinks/Week Comments Yes 2 [...] week 06/28/2019 How often do you attend anabaptist or restoration serv ices? Never 06/28/2019 Do you belong to any clubs o r organizations such as anabaptist groups, unions, fraternal or athletic groups, or [...] Procedure Name Priority Date/Time Associated Diagnosis Comments CT LOW DOSE LUNG SCREEN ANNUAL Routine 01/04/2024 History of tobacco use, presenting hazards to health Encounter for screening for lung cancer documented in this encounter Results * CT LOW DOSE LUNG SCREEN ANNUAL (01/04/2024) 01/04/[address] SCANS documented in this encounter Visit Diagnoses Diagnosis History of tobacco use, presenting hazards to health Personal history of tobacco use, presenting hazards to health Encounter for screening for lung cancer documented in this encounter Care Teams Save All Operator Relationship Specialty Start Date End Date Anabel Rapp MD PCP - General Family Practice 05/07/21 Hortencia Boss MD Specialist Cardiology 03/02/22 Nella Soria PA-C Cardiology 04/14/22 documented as of this encounter
--- OUTSIDE RECORDS SUMMARY | 2025-07-10 12:47 | XMS_ITS | Encounter Summary ---
Author Organization [facility] Address [address] [place] [address] Care Team Providers Care Naval Inspector Name Role Phone Anabel Rapp MD Primary Care Provider Hortencia Koch MD Unavailable Nella Soria PA-C Unavailable Unavailab le Encounter Details Date Type Department Care Team Description 03/08/2023 Orders Only Cardio PVC POC [address] [facility] [address] [place] [address] Hortencia Boss MD [address] [place] [address] Social History Tobacco Use Types Packs/Day Years [...] week 06/28/2019 How often do you attend sikh or moravian serv ices? Never 06/28/2019 Do you belong to any clubs o r organizations such as sikh groups, unions, fraternal or athletic groups, or [...] on filedocumented in this encounter Care Teams Naval Inspector Relationship Specialty Start Date End Date Anabel Rapp MD PCP - General Family Practice 05/07/21 Hortencia Boss MD Specialist Cardiology 03/02/22 Nella Soria PA-C Cardiology 04/14/22 documented as of this encounter
--- OUTSIDE RECORDS SUMMARY | 2025-07-10 12:48 | XMS_ITS | Encounter Summary ---
Author Organization [facility] Address [address] [place] [address] Care Team Providers Care Disposition Clerk Name Role Phone Anabel Rapp MD Primary Care Provider Hortencia Koch MD Unavailable Nella Soria PA-C Unavailable Unavailab le Encounter Details Date Type Department Care Team Description 04/05/2022 [facility] Medical Records [address] [place] [address] Ally Araiza Social History Tobacco Use Types Packs/Day Years [...] week 06/28/2019 How often do you attend yazidi or hindu serv ices? Never 06/28/2019 Do you belong to any clubs o r organizations such as yazidi groups, unions, fraternal or athletic groups, or [...] was confirmed or suspected to have Coronavirus/COVID-19? Yes 04/05/2022 1:22 PM EDT documented as of this encounter Plan of Treatment Not on file documented as of this encounter Procedures Procedure Name Priority Date/Time Associated Diagnosis Comments OUTSIDE NUCLEAR STRESS TEST Routine 04/07/2022 OUTSIDE LAB Routine 04/06/2022 OUTSIDE EKG Routine 04/05/2022 documented in this encounter Results * OUTSIDE NUCLEAR STRESS TEST (04/07/2022) Provider Default CARDIOLOGY * OUTSIDE LAB (04/06/2022) Provider Default LAB * OUTSIDE EKG (04/05/2022) Provider Default CARDIOLOGY documented in this encounter Visit Diagnoses Not on filedocumented in this encounter Care Teams Disposition Clerk Relationship Specialty Start Date End Date Anabel Rapp MD PCP - General Family Practice 05/07/21 Hortencia Boss MD Specialist Cardiology 03/02/22 Nella Soria PA-C Cardiology 04/14/22 documented as of this encounter
--- OUTSIDE RECORDS SUMMARY | 2025-07-10 12:48 | XMS_ITS | Encounter Summary ---
Author Organization [facility] Address [address] [place] [address] Care Team Providers Care Presser And Blocker Knitted Goods Name Role Phone Sarah Price MD Primary Care Provider [phone] Encounter Details Date Type Department Care Team (Late st Contact Info) Description 06/04/2025 Results Follow-Up Internal Medicine - [facility] [address] [place] [address] Benton Quintanilla PA [address] [place] [address] Social History Tobacco Use Types Packs/Day Years [...] Description 08/29/2025 7:40 AM EST Office Visit [facility] - [facility] [address] [facility] [address] [place] [phone] Kerri Batres NP [address] [place] [address] [place] [phone] 09/03/2025 3:00 PM EST Procedure visit General Surgery - [place] [address] [phone] Jevon Castellon MD [address] [address] 10/24/2025 3:00 PM EDT Office Visit Internal Medicine - [facility] [address] [place], [place] [phone] Sarah Price MD [address] [place], [place] documented as of this encounter Visit Diagnoses Not on filedocumented in this encounter Care Teams Presser And Blocker Knitted Goods Relationship Specialty Start Date End Date Sarah Price MD [address] [place] [address] PCP - General Internal Medicine 04/25/25 documented as of this encounter
--- OUTSIDE RECORDS SUMMARY | 2025-07-10 12:48 | XMS_ITS | Encounter Summary ---
Author Organization [facility] Address [address] [place] [address] Care Team Providers Care Journeyman Press Operator Name Role Phone Peter Allen MD Primary Care Provider Garry Lucero NP Primary Care Provider [phone] Anabel Rapp MD Primary Care Provider Hortencia Koch MD Unavailable Nella Soria PA-C Unavailable Unavailab le Encounter Details Date Type Department Care Team Description 02/09/2021 Refill Gastroenterology - [address] [place] [phone] Katalina Valdez MD [address] [place] [address] Social History Tobacco Use Types Packs/Day Years [...] week 06/28/2019 How often do you attend rastafari or gnosticist serv ices? Never 06/28/2019 Do you belong to any clubs o r organizations such as rastafari groups, unions, fraternal or athletic groups, or [...] Exposure Response Date Recorded In the last month, have you been in contact with someone who was confirmed or suspected to have Coronavirus / COVID-19? No / Unsure 01/27/2021 3:54 PM EDT documented as of this encounter Plan of Treatment Not on file documented as of this encounter Visit Diagnoses Not on filedocumented in this encounter Care Teams Journeyman Press Operator Relationship Specialty Start Date End Date Peter Allen MD [address] [place] [address] PCP - General Internal Medicine 07/03/20 04/30/21 Garry Lucero NP [address] [place] [address] PCP - General Internal Medicine 05/01/21 05/06/21 Anabel Rapp MD [address] [place] [address] PCP - General Family Practice 05/07/21 Hortencia Boss MD [address] [place] [address] Specialist Cardiology 03/02/22 Nella Soria PAPelonC [address] [place] [address] Cardiology 04/14/22 documented as of this encounter
--- OUTSIDE RECORDS SUMMARY | 2025-07-10 12:48 | XMS_ITS | Encounter Summary ---
Author Organization [facility] Address [address] [place] [address] Care Team Providers Care Intelligence Clerk Name Role Phone Anabel Rapp MD Primary Care Provider Hortencia Koch MD Unavailable Nella Soria PA-C Unavailable Unavailab le Encounter Details Date Type Department Care Team Description 01/13/2023 SCAN Medical Records [address] [place] [address] Abstract, Provider Social History Tobacco Use Types Packs/Day Years [...] week 06/28/2019 How often do you attend mandaeism or rastafarian serv ices? Never 06/28/2019 Do you belong to any clubs o r organizations such as mandaeism groups, unions, fraternal or athletic groups, or [...] Name Priority Date/Time Associated Diagnosis Comments OUTSIDE LAB Routine 01/13/2023 documented in this encounter Results * OUTSIDE LAB (01/13/2023) Provider Default LAB documented in this encounter Visit Diagnoses Not on filedocumented in this encounter Care Teams Intelligence Clerk Relationship Specialty Start Date End Date Anabel Rapp MD PCP - General Family Practice 05/07/21 Hortencia Boss MD Specialist Cardiology 03/02/22 Nella Soria PA-C Cardiology 04/14/22 documented as of this encounter
--- OUTSIDE RECORDS SUMMARY | 2025-07-10 12:48 | XMS_ITS | Encounter Summary ---
Author Organization [facility] Address [address] [place] [address] Care Team Providers Care Plaque Maker Name Role Phone Anabel Rapp MD Primary Care Provider Hortencia Koch MD Unavailable Nella Soria PA-C Unavailable Unavailab le Reason for Visit * Reason Comments E-prescribe Rx Request Encounter Details Date Type Department Care Team Description 02/12/2022 Refill Adult Medicine [address] [address] Delmis Devlin PA-C E-prescribe Rx Request Social History Tobacco Use Types Packs/Day Years Used Date Smoking Tobacco: Every Day Cigarettes 1 Smokeless Tobacco: Never Alcohol Use Standard Drinks/Week [...] week 06/28/2019 How often do you attend orthodox or worship serv ices? Never 06/28/2019 Do you belong to any clubs o r organizations such as orthodox groups, unions, fraternal or athletic groups, or [...] encounter Miscellaneous Notes * Telephone Encounter - Judith Corado PA-C - 02/16/2022 12:22 PM EDT Pt has appt tomorrow. Pt has leg swelling. Amlodipine can worsen that. Can discuss use at tomorrow's appt. Thank you. * Telephone Encounter - Ivory Jerez L.P.N. - 02/16/2022 11:01 AM EDT [phone] (home) Pt pending appt next day / will discuss meds then, pt is not sure what she is taking / co ankle edema x 1 month / After elevating legs last night felt like blood flow to legs was faint , temperature was normal to touch / co sob with exertion / advised evaluation before flying home / pt agrees / wasquestioning compression stockings / advised to ask at evaluation today about stockings * Telephone Encounter - Lesley Oneal M.A. - 02/16/2022 10:52 AM EDT Spoke to pt. I booked her an appointmnet for tomorrow for med review. Triage: pt is complaining of swollen ankles. She is in [place] and is due to fly back tomorrow. I did set her up an appt to be seen. My question is is she ok to travel by plane. Please advise * Telephone Encounter - Judith Corado PA-C - 02/16/2022 10:11 AM EDT Please call patient: When patient has appt I will sign to get her to that date only. also has she been taking lipitor? Has not been signed for since November day supply. Thank you * Telephone Encounter - Yamilka Soto - 02/16/2022 9:35 AM EDT Last office visit 07/14/21 has not seen pcp yet, letter mailed today requesting appt Lab Results Component Value Date NA 143 07/14/2021 K 3.8 07/14/2021 CO2 30 07/14/2021 CL 109 07/14/2021 BUN 24 07/14/2021 CREAT 1.00 07/14/2021 GLU 95 07/14/2021 CA 8.3 07/14/2021 GFR 57 07/14/2021 * Telephone Encounter - Renea Queen - 02/15/2022 9:44 AM EDT Patient would like script to be: E-PRESCRIBED/FAXED TO PHARMACY WHEN WAS THE PATIENT'S LAST APPOINTMENT IN ADULT MEDICINE? 07-14-21 WHEN WAS THE LAST TIME THE PATIENT SAW THEIR PCP? Has not seen pcp Does patient have an upcoming appointment? Sent letter (THE MEDICATION REQUESTED IS ON THE MED LIST ABOVE) All of the medications requested were on the CURRENT MEDS list Did you check the Pharmacy information above?: YES Patient wants: 30 -day supply Is this a mail order prescription request ? NO If the refill is from a FAXED refill request what is the RX # listed on the fax? N/A Patients current insurance carrier is: Payor: [employer] / Plan: [employer] $20 ASTORIA 1 / Product Type: HMO [id number][employer] documented in this encounter Plan of Treatment Not on file documented as of this encounter Visit Diagnoses Not on filedocumented in this encounter Care Teams Plaque Maker Relationship Specialty Start Date End Date Anabel Rapp MD PCP - General Family Practice 05/07/21 Hortencia Boss MD Specialist Cardiology 03/02/22 Nella Soria PA-C Cardiology 04/14/22 documented as of this encounter
--- OUTSIDE RECORDS SUMMARY | 2025-07-10 12:48 | XMS_ITS | Encounter Summary ---
Author Organization [facility] Address [address] [place] [address] Care Team Providers Care Gripper Attacher Name Role Phone Anabel Rapp MD Primary Care Provider Hortencia Koch MD Unavailable Nella Soria PA-C Unavailable Unavailab le Encounter Details Date Type Department Care Team Description 03/05/2022 SCAN Medical Records [address] [place] [id number] [place] [address] Social History Tobacco Use Types Packs/Day Years Used Date Smoking Tobacco: Former Cigarettes 1 Q uit: 02/17/2022 Smokeless Tobacco: Never Alcohol Use Standard Drinks/Week [...] week 06/28/2019 How often do you attend anabaptism or anabaptism serv ices? Never 06/28/2019 Do you belong to any clubs o r organizations such as anabaptism groups, unions, fraternal or athletic groups, or [...] suspected to have Coronavirus/COVID-19? No / Unsure 03/08/2022 2:43 PM EDT documented as of this encounter Plan of Treatment Not on file documented as of this encounter Visit Diagnoses Not on filedocumented in this encounter Care Teams Gripper Attacher Relationship Specialty Start Date End Date Anabel Rapp MD PCP - General Family Practice 05/07/21 Hortencia Boss MD Specialist Cardiology 03/02/22 Nella Soria PA-C Cardiology 04/14/22 documented as of this encounter
--- OUTSIDE RECORDS SUMMARY | 2025-07-10 12:48 | XMS_ITS | Encounter Summary ---
Author Organization [facility] Address [address] [place] [address] Care Team Providers Care Preload Supervisor Name Role Phone Sarah Price MD Primary Care Provider [phone] Reason for Visit * Reason Onset Date Comments High Blood Pressure 06/06/2025 Encounter Details Date Type Department Care Team (Late st Contact Info) Description 06/06/2025 Telephone [facility] - [facility] [address] [facility] [address] [place] [address] Hortencia Boss MD [address] [place] [address] [address] [place] [address] [place] [address] Social History Tobacco Use Types Packs/Day Years [...] and would like a call back at [phone]. documented in this encounter Plan of Treatment Upcoming Encounters Date Type Department Care Team (Late st Contact Info) Description 08/29/2025 7:40 AM EST Office Visit [facility] - [facility] [address] [facility] [address] [place] [phone] Kerri Batres NP [address] [place] [address] [address] [place] [address] [place] [address] 09/03/2025 3:00 PM EST Procedure visit General Surgery - [place] 175 [facility] [address] [place] [address] Jevon Castellon MD 175 [facility] [address] [place] [address] 10/24/2025 3:00 PM EDT Office Visit Internal Medicine - [facility] [address] [place], [place] [phone] Sarah Price MD [address] [place], [place] documented as of this encounter Visit [...] 06/06/2025 added in this encounter Care Teams Preload Supervisor Relationship Specialty Start Date End Date Sarah Price MD [address] [place] [address] PCP - General Internal Medicine 04/25/25 documented as of this encounter
--- OUTSIDE RECORDS SUMMARY | 2025-07-10 12:48 | XMS_ITS | Encounter Summary ---
Author Organization [facility] Address [address] [place] [address] Care Team Providers Care Application Assistant Name Role Phone Anabel Rapp MD Primary Care Provider Hortencia Koch MD Unavailable Nella Soria PA-C Unavailable Unavailab le Encounter Details Date Type Department Care Team Description 04/06/2022 SCAN Medical Records [address] [place] [address] Abstract, Provider Social History Tobacco Use Types [...] How often do you attend yazidi or zoroastrian serv ices? Never 06/28/2019 Do you belong [...] Date/Time Associated Diagnosis Comments OUTSIDE LAB Routine 04/06/2022 documented in this encounter Results * OUTSIDE LAB (04/06/2022) Provider Abstract LAB documented in this encounter Visit Diagnoses Not on filedocumented in this encounter Care Teams Application Assistant Relationship Specialty Start Date End Date Anabel Rapp MD PCP - General Family Practice 05/07/21 Hortencia Boss MD Specialist Cardiology 03/02/22 Nella Soria PA-C Cardiology 04/14/22 documented as of this encounter
--- OUTSIDE RECORDS SUMMARY | 2025-07-10 12:48 | XMS_ITS | Encounter Summary ---
Author Organization [facility] Address [address] [place] [address] Care Team Providers Care Windlace Machine Operator Name Role Phone Anabel Rapp MD Primary Care Provider Hortencia Koch MD Unavailable Nella Soria PA-C Unavailable Unavailab le Reason for Visit * Reason Onset Date Comments Faxed Refill 03/04/2023 [facility] [place] Encounter Details Date Type Department Care Team Description 03/04/2023 Telephone Cardio PVC POC [address] [place] [address] Kylee Givens, PRIVATE SECURITY GUARD [address] [place] [id number] Faxed Refill ([facility], [place]) Social History Tobacco Use Types Packs/Day Years [...] week 06/28/2019 How often do you attend moravian or sikh serv ices? Never 06/28/2019 Do you belong to any clubs o r organizations such as moravian groups, unions, fraternal or athletic groups, or [...] encounter Miscellaneous Notes * Telephone Encounter - Samia Nicholson RN - 03/09/2023 9:30 AM EDT I relayed message to patient regarding ativan and which pharmacy sent to. She verbalized understanding. * Telephone Encounter - Regina Manzanares NP - 03/08/2023 4:25 PM EDT Please let her know that Dr. Boss refilled ativan script for Cardiac MRI as requested, thank you * Telephone Encounter - Samia Nicholson RN - 03/04/2023 12:45 PM EDT She was all ready to go in for MRI and stated they lost power...and appt was cancelled but she had taken the ativan. She is presently in [place] for the week returning next week. * Telephone Encounter - Regina Manzanares NP - 03/04/2023 12:14 PM EDT Samia, Could you please clarify with her, did she get to her appt and was unable to have the cardiac MRI because she wasn't able to tolerate being in the MRI after taking it? * Telephone Encounter - Samia Nicholson RN - 03/04/2023 8:32 AM EDT Toprol XL 50 mg qd #90 req MANUEL 06/01/22 with ENP Due for recheck with YZ in 4 months Booked appt 06/20/23 with YZ and mailed appt reminder. Patient states she forgets to take Toprol xl 50 mg qd on the weekends and reported on one of those days felt very sweaty with chest heaviness lasting 10- 15 minutes. Denied elevated heart rate. I advised taking meds as prescribed. Stated for chest pain, heaviness, tightness, jaw, shoulder arm pain if no relief in 15 minutes to call 911 go to er for eval. Patient states she is scheduled for Cardiac MRI 03/11/23 and is asking for a script for ativan to help her relax. I stated she had been given 1 prior to this test that she states was cancelled. Patient stated she unfortunately took it prior to test being cancelled and was not helpful. She is asking for a stronger script. documented in this encounter Plan of Treatment Not on file documented as of this encounter Visit Diagnoses Not on filedocumented in this encounter Care Teams Windlace Machine Operator Relationship Specialty Start Date End Date Anabel Rapp MD PCP - General Family Practice 05/07/21 Hortencia Boss MD Specialist Cardiology 03/02/22 Nella Soria PA-C Cardiology 04/14/22 documented as of this encounter
--- OUTSIDE RECORDS SUMMARY | 2025-07-10 12:48 | XMS_ITS | Encounter Summary ---
Author Organization [facility] Address [address] [place] [address] Care Team Providers Care Brake Repairer Hydraulic Name Role Phone Sarah Price MD Primary Care Provider [phone] Reason for Visit * Reason Onset Date Comments Medication Problem 06/10/2025 Encounter Details Date Type Department Care Team (Late st Contact Info) Description 06/10/2025 Telephone Internal Medicine - [place] [address] [place], [place] [phone] Sarah Price MD [address] [place], [place] Social History Tobacco Use Types Packs/Day [...] (one) time each day. 30 each 06/10/2025 documented in this encounter Progress Notes * Teresita Killian - 06/10/2025 11:35 AM EDT Medication Problem: What is the name of the medication patient is having a problem with?: amlodipine What is the problem?: pts At [facility] cardiology asked pt to call pcp to increase dose to10 mg once daily and will need it filled. Who is calling about the problem? : The patient Is this a NEW medication?: no How long has the patient been taking this medication? unsure Who prescribed this medication for the patient? Nancy March Who is patients PCP?: Sarah Price MD Payor: [facility] / Plan: [facility] / Product Type: *No Product type* / documented in this encounter Plan of Treatment Upcoming Encounters Date Type Department Care Team (Late st Contact Info) Description 08/29/2025 7:40 AM EST Office Visit [facility] - [facility] [address] [facility] [address] [place] [address] Kerri Batres NP [address] [place] [address] [address] [place] [address] 09/03/2025 3:00 PM EST Procedure visit General Surgery - [place] [address] [facility] [address] [place] [address] Jevon Castellon MD [address] [facility] [address] [place] [address] 10/24/2025 3:00 PM EDT [facility] [address] [place] [phone] Sarah Price MD [address] [place], [place] documented as of this encounter Visit Diagnoses Not on filedocumented in this encounter Discontinued Medications Medication Sig Discontinue Reason Start Date End Da te amLODIPine (NORVASC) 5 mg tablet TAKE 1 TABLET(5 MG) BY MOUTH 1 TIME EACH DAY 01/15/2025 06/10/2025 documented as of this encounter Care Teams Brake Repairer Hydraulic Relationship Specialty Start Date End Date Sarah Price MD [address] [facility] [place] [address] PCP - General Internal Medicine 04/25/25 documented as of this encounter
--- OUTSIDE RECORDS SUMMARY | 2025-07-10 12:48 | XMS_ITS | Encounter Summary ---
Author Organization [facility] Address [address] [place] [address] Care Team Providers Care Supervisor Component Assembler Name Role Phone Lizzeth Aj MD Primary Care Provider Peter Osullivan MD Primary Care Provider [phone] Garry Lucero NP Primary Care Provider [phone] Anabel Rapp MD Primary Care Provider Hortencia Koch MD Unavailable Nella Soria PA-C Unavailable Unavailab le Encounter Details Date Type Department Care Team Description 08/23/2019 Release of Information Medical Records [address] [place] [id number] Abstract, Provider Social History Tobacco Use Types [...] week 06/28/2019 How often do you attend scientologist or mormonism serv ices? Never 06/28/2019 Do you belong to any clubs o r organizations such as scientologist groups, unions, fraternal or athletic groups, or [...] on filedocumented in this encounter Care Teams Supervisor Component Assembler Relationship Specialty Start Date End Date Lizzeth Aj MD PCP - General 08/30/01 07/02/20 Peter Allen MD [address] [place] [address] PCP - General Internal Medicine 07/03/20 04/30/21 Garry Lucero NP [address] [place] [address] PCP - General Internal Medicine 05/01/21 05/06/21 Anabel Rapp MD [address] [place] [address] PCP - General Family Practice 05/07/21 Hortencia Boss MD [address] [place] [address] Specialist Cardiology 03/02/22 Nella Soria, PA-C [address] [place] [address] Cardiology 04/14/22 documented as of this encounter
--- OUTSIDE RECORDS SUMMARY | 2025-07-10 12:48 | XMS_ITS | Encounter Summary ---
Author Organization [facility] Address [address] [place] [address] Care Team Providers Care Emergency Room Clerk Name Role Phone Anabel Rapp MD Primary Care Provider Hortencia Koch MD Unavailable Nella Soria PA-C Unavailable Unavailab le Reason for Visit * Reason Onset Date Comments alcohol/drug problems 08/02/2023 Encounter Details Date Type Department Care Team Description 08/02/2023 Telephone Adult Medicine [facility] [address] [place] [address] Nancy March APRN [address] [place] [address] alcohol/drug problems Social History Tobacco Use Types Packs/Day Years Used Date Smoking Tobacco: Every Day Cigarettes 1 Smokeless Tobacco: Never Comments:1 pack daily Alcohol [...] encounter Miscellaneous Notes * Telephone Encounter - Rukhsana Dhillon M.A. - 08/02/2023 10:02 AM EST Left detailed message if call back please out to [phone] * Telephone Encounter - Varsha Hernandez - 08/02/2023 10:01 AM EST Call [phone] * Telephone Encounter - Varsha Hernandez - 08/02/2023 10:00 AM EST Pt calling back * Telephone Encounter - Rukhsana Dhillon M.A. - 08/02/2023 9:25 AM EST Left a message to call back. Please put call to [phone] or remessage to a-pool * Telephone Encounter - Nancy March APRN - 08/02/2023 9:15 AM EST Images from the original note were not included. Nursing, please call patient I have ordered liver functions. Please have patient to stop by labs at her earliest convenience. If repeat labs normal, will start Naltrexone 50 mg daily. Anabel Rapp MD [facility]; Nancy March APRN I will forward this message on to my colleague who has seen this patient before. Nancy; see below on patient you have most recently seen. Would need baseline LFTs, and if normal, start naltrexone 50mg once daily then arrange f/u in 3 mths. documented in this encounter Plan of Treatment Not on file documented as of this encounter Results * [facility] HEPATIC FUNCTION PANEL (08/05/2023 1:32 PM EST) TOTAL PROTEIN (TP) 6.5 6.0 - 8.0 G/dL 08/05/2023 4:25 PM EST [facility] Albumin 3.4 3.2 - 5.0 G/dL 08/05/2023 4:25 PM EST [facility] BILIRUBIN TOTAL 0.6 0.0 - 1.4 mg/dL 08/05/2023 4:25 PM EST [facility] BILIRUBIN DIRECT 0.2 0.0 - 0.3 mg/dL 08/05/2023 4:25 PM EST [facility] BILIRUBIN INDIRECT 0.4 0.0 - 1.1 mg/dL 08/05/2023 4:25 PM EST [facility] SGOT 15 10 - 42 U/L 08/05/2023 4:25 PM EST [facility] SGPT 21 10 - 60 U/L 08/05/2023 4:25 PM EST [facility] ALK PHOS 63 42 - 121 U/L 08/05/2023 4:26 PM EST [facility] 08/05/2023 1:32 PM EST 08/05/2023 1:32 PM EST Narrative [facility] - 08/05/2023 4:26 PM EST Release to patient->Immediate Nancy March APRN LAB [facility] documented in this encounter Visit Diagnoses Diagnosis Alcoholism (HCC)- Primary Other and unspecified alcohol dependence, unspecified drinking behavior Alcoholism (HCC) Other and unspecified alcohol dependence, unspecified drinking behavior documented in this encounter Care Teams Emergency Room Clerk Relationship Specialty Start Date End Date Anabel Rapp MD PCP - General Family Practice 05/07/21 Hortencia Boss MD Specialist Cardiology 03/02/22 Nella Soria PA-C Cardiology 04/14/22 documented as of this encounter
--- OUTSIDE RECORDS SUMMARY | 2025-07-10 12:48 | XMS_ITS | Encounter Summary ---
Author Organization [facility] Address [address] [place] [address] Care Team Providers Care Nursery Hand Name Role Phone Anabel Rapp MD Primary Care Provider Hortencia Koch MD Unavailable Nella Soria PA-C Unavailable Unavailab le Encounter Details Date Type Department Care Team Description 12/13/2022 Control Panel Tester Report Medical Records [address] [place] [id number] Sujatha Frazier NP Social History Tobacco Use Types Packs/Day Years [...] week 06/28/2019 How often do you attend mormon or hindu serv ices? Never 06/28/2019 Do you belong to any clubs o r organizations such as mormon groups, unions, fraternal or athletic groups, or [...] suspected to have Coronavirus/COVID-19? No / Unsure 11/16/2022 2:21 PM EDT documented as of this encounter Plan of Treatment Not on file documented as of this encounter Visit Diagnoses Not on filedocumented in this encounter Care Teams Nursery Hand Relationship Specialty Start Date End Date Anabel Rapp MD PCP - General Family Practice 05/07/21 Hortencia Boss MD Specialist Cardiology 03/02/22 Nella Soria PA-C Cardiology 04/14/22 documented as of this encounter
--- OUTSIDE RECORDS SUMMARY | 2025-07-10 12:48 | XMS_ITS | Clinical Summary ---
Author Organization [address] [place] [address] [place] [phone] Phone Care Team Providers Care Arc Furnace Operator Name Role Phone Sarah Price MD Primary Care Provider [phone] Allergies Active Allergy Reactions Criticality Noted Date Comments Oxycodone-Acetaminop hen Nausea And Vomiting,Sweating High 01/03/2006 Shaking (Percocet) Medications aspirin 81 mg chewable tablet Chew 1 tablet (81 mg total) 1 (one) time each day. 90 tablet 2 5 Active metoprolol succinate (Toprol XL) 100 mg 24 hr tablet Take 1 tablet (100 mg total) by mouth 1 (one) time each day. Do not crush or chew. 30 each 11 5 08/20/19 26 Active Wegovy 0.5 mg/0.5 mL injection pen ADMINISTER 0.5 MG UNDER THE SKIN 1 TIME WEEKLY Active triamcinolone (KENALOG) 0.1 % ointment Apply topically 2 (two) times a day if needed for irritation or rash. 15 g 5 08/24/19 26 Active losartan (COZAAR) 50 mg tablet Take 1 tablet (50 mg total) by mouth 1 (one) time each day. 90 tablet 3 5 Active atorvastatin (LIPITOR) 40 mg tablet TAKE 1 TABLET(40 MG) BY MOUTH 1 TIME EACH DAY 90 tablet 1 5 Active ibuprofen (ADVIL,MOTRIN) 800 mg tablet Take 1 tablet (800 mg total) by mouth 1 (one) time each day. Active multivitamin with minerals tablet Take 1 tablet by mouth 1 (one) time each day. Active amLODIPine (NORVASC) 10 mg tablet Take 1 tablet (10 mg total) by mouth 1 (one) time each day. 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 ([facility] V24) 11/08/2023 Cardiomyopathy ([facility] V24, [facility] V28) 2022 Overview (05/17/2024): [...] Team Description 06/10/2025 [facility] [address] [facility] [place] [address] Sarah Price MD 06/06/2025 3:30 PM EDT Consult General Surgery - [place] [address] [facility] [address] [place] [address] Jevon Castellon MD Lipoma of torso (Primary Dx) 06/06/2025 Telephone [facility] - [facility] [address] [facility] [address] [place] [address] Hortencia Boss MD 06/04/2025 Results Follow-Up Internal Medicine - [facility] [address] [place] [address] Benton Quintanilla PA 05/31/2025 2:45 PM EDT [facility] [address] [place] [address] Benton Quintanilla PA Compression fracture of L2 vertebra with routine healing, subsequent encounter (Primary Dx) 05/28/2025 [facility] [address] [place] [address] Sarah Price MD 05/13/2025 Telephone [facility] - [facility] [address] [facility] [address] [place] [address] Hortencia Boss MD 05/07/2025 9:10 AM EDT Office Visit [facility] - [address] [facility] [address] [place] [address] Kerri Batres NP Cardiomyopathy, unspecified type (CMS/HCC V24, CMS/HCC V28) (Primary Dx); Essential hypertension; LVH (left ventricular hypertrophy); Tobacco use disorder 04/26/2025 11:30 AM EDT Office Visit Internal Medicine - [facility] [address] [place] [address] Benton Quintanilla PA Health maintenance examination (Primary Dx); Hyperlipidemia, unspecified hyperlipidemia type; Essential hypertension; Lipoma, unspecified site; Abnormal kidney function from Last 3 Months Immunizations Immunization Administration [...] HISTORY SKIN TISSUE EXCISION OTHER SURGICAL HISTORY [place] CORPJ HLX VLGS BNCTY SESMDC W/ DOUBLE [...] Livin g Live Births 1 1 1 1 Date Outcome GA Total [...] Description 08/29/2025 7:40 AM EST Office Visit [facility] - [facility] [address] [facility] [address] [place] [phone] Kerri Batres NP [address] [place] [address] [address] [place] [address] 09/03/2025 3:00 PM EST Procedure visit General Surgery - [place] [facility] [address] [place] [address] Jevon Castellon MD 175 [facility] [address] [place] [address] 10/24/2025 3:00 PM EDT Office Visit Internal Medicine - [facility] [address] [place] [address] Sarah Price MD [address] [place] [phone] Health Maintenance Due Date Last Done Comments [...] Additional history exists Breast Cancer Screening 01/09/2027 01/10/20, 01/03/2024, 01/03/2024, Additional history exists Cholesterol Screening [...] mmol/L LAB CHEMISTRY METHOD 05/31/2025 6:39 PM [facility] Potassium 3.5 3.5 - 5.5 mmol/L LAB CHEMISTRY METHOD 05/31/2025 6:39 PM [facility] Chloride 107 96 - 110 mmol/L LAB CHEMISTRY METHOD 05/31/2025 6:39 PM [facility] CO2 30 21 - 32 mmol/L LAB CHEMISTRY METHOD 05/31/2025 6:39 PM [facility] Anion Gap 4 3 - 11 LAB CHEMISTRY METHOD 05/31/2025 6:39 PM [facility] Glucose 81 70 - 100 mg/dL LAB CHEMISTRY METHOD 05/31/2025 6:39 PM [facility] BUN 21 5 - 25 mg/dL LAB CHEMISTRY METHOD 05/31/2025 6:39 PM [facility] Creatinine 1.14(H) 0.50 - 1.10 mg/dL LAB CHEMISTRY METHOD 05/31/2025 6:39 PM EDT [facility] eGFR 55(L) >=60 mL/min/1. 73m2 LAB CHEMISTRY METHOD 05/31/2025 6:39 PM EDT [facility] Comment:Calculation based on the Chronic Kidney Disease Epidemiology Collaboration (CKD-EPI) equation refit without adjustment for race. BUN/Creatinine Ratio 18.4 LAB CHEMISTRY METHOD 05/31/2025 6:39 PM EDT [facility] Calcium 9.3 8.5 - 10.5 mg/dL LAB CHEMISTRY METHOD 05/31/2025 6:39 PM EDT [facility] Blood Venous blood specimen / Unknown Venipuncture / Unknown 05/31/2025 2:59 PM EDT 05/31/2025 2:59 PM EDT [facility] BLOOD ORDERABLES Fi nal Result [facility] [address] [place] [address], * ECG 12 lead (05/07/2025 10:34 AM EDT) Ventricular Rate ECG 80 BPM GEMUSE Atrial Rate 80 BPM GEMUSE P-R Interval 136 ms GEMUSE QRS Duration 92 ms GEMUSE Q-T Interval 398 ms GEMUSE QTc 459 ms GEMUSE P Wave [place] 28 degrees GEMUSE R [place] -52 degrees GEMUSE T [place] -76 degrees GEMUSE ECG Interpretation Normal sinus [...] 05/09/2025 3:59 PM EDT us Kerri Batres PIPE STRIPPER ECG ORDERABLES Edited Result - Final NOÉ * Lipid panel with reflex to direct LDL (04/26/2025 11:49 AM EDT) Cholesterol 169 0 - 200 mg/dL LAB CHEMISTRY METHOD 04/26/2025 3:46 PM EDT [facility] Triglycerides 124 0 - 150 mg/dL LAB CHEMISTRY METHOD 04/26/2025 3:46 PM EDT [facility] HDL 56 >=40 mg/dL LAB CHEMISTRY METHOD 04/26/2025 3:46 PM EDT [facility] LDL Calculated 88 0 - 100 mg/dL LAB CHEMISTRY METHOD 04/26/2025 3:46 PM EDT [facility] Comment:Estimated LDL Calcul ated using equation: Total cholesterol - HDL cholesterol - (Triglycerides/5) VLDL Cholesterol Rubio 24.8 mg/dL LAB CHEMISTRY METHOD 04/26/2025 3:46 PM EDT [facility] Non HDL Chol. (LDL+VLDL) 113 <145 mg/dL LAB CHEMISTRY METHOD 04/26/2025 3:46 PM EDT [facility] Chol/HDL Ratio 3.0 0.0 - 4.4 LAB CHEMISTRY METHOD 04/26/2025 3:46 PM EDT [facility] Blood Venous blood specimen / Unknown Venipuncture / Unknown 04/26/2025 11:49 AM EDT 04/26/2025 11:49 AM EDT us [facility] BLOOD ORDERABLES Fi nal Result [facility] [address] [place] [address], [place] [phone] * (ABNORMAL) Comprehensive metabolic panel (04/26/2025 11:49 AM EDT) Sodium 143 133 - 145 mmol/L LAB CHEMISTRY METHOD 04/26/2025 3:46 PM [facility] Potassium 3.5 3.5 - 5.5 mmol/L LAB CHEMISTRY METHOD 04/26/2025 3:46 PM [facility] Chloride 107 96 - 110 mmol/L LAB CHEMISTRY METHOD 04/26/2025 3:46 PM [facility] CO2 31 21 - 32 mmol/L LAB CHEMISTRY METHOD 04/26/2025 3:46 PM [facility] Anion Gap 5 3 - 11 LAB CHEMISTRY METHOD 04/26/2025 3:46 PM [facility] Glucose 109(H) 70 - 100 mg/dL LAB CHEMISTRY METHOD 04/26/2025 3:46 PM [facility] BUN 22 5 - 25 mg/dL LAB CHEMISTRY METHOD 04/26/2025 3:46 PM [facility] Creatinine 1.24(H) 0.50 - 1.10 mg/dL LAB CHEMISTRY METHOD 04/26/2025 3:46 PM [facility] eGFR 50(L) >=60 mL/min/1. 73m2 LAB CHEMISTRY METHOD 04/26/2025 3:46 PM [facility] Comment:Calculation based on the Chronic Kidney Disease Epidemiology Collaboration (CKD-EPI) equation refit without adjustment for race. BUN/Creatinine Ratio 17.7 LAB CHEMISTRY METHOD 04/26/2025 3:46 PM [facility] Calcium 8.9 8.5 - 10.5 mg/dL LAB CHEMISTRY METHOD 04/26/2025 3:46 PM [facility] AST (SGOT) 20 10 - 42 unit/L LAB CHEMISTRY METHOD 04/26/2025 3:46 PM [facility] ALT (SGPT) 23 10 - 60 unit/L LAB CHEMISTRY METHOD 04/26/2025 3:46 PM [facility] Alkaline Phosphatase 65 42 - 121 unit/L LAB CHEMISTRY METHOD 04/26/2025 3:46 PM EDT [facility] Total Protein 6.4 6.0 - 8.0 g/dL LAB CHEMISTRY METHOD 04/26/2025 3:46 PM EDT [facility] Albumin 3.6 3.2 - 5.0 g/dL LAB CHEMISTRY METHOD 04/26/2025 3:46 PM EDT [facility] Total Bilirubin 0.5 0.0 - 1.4 mg/dL LAB CHEMISTRY METHOD 04/26/2025 3:46 PM EDT [facility] Blood Venous blood specimen / Unknown Venipuncture / Unknown 04/26/2025 11:49 AM EDT 04/26/2025 11:49 AM EDT [facility] BLOOD ORDERABLES Fi nal Result [facility] [address] [place] [address], [place] [phone] * CT Lung Screening (02/21/2025 4:01 PM [...] Signed Date: 02/22/2025 10:41 ET Workstation ID: [id number] Transcribed By: Self Edit Transcribed Date: 02/22/2025 10:34 ET Narrative 02/22/2025 10:41 AM EDT EXAMINATION: CT CHEST WITHOUT CONTRAST LUNG CANCER SCREENING, LOW DOSE CLINICAL INFORMATION: Lung cancer screening. Current smoker. COMPARISON: Portions of previous 01/04/24 TECHNIQUE: Multidetector CT. Examination of the chest. Examination of the chest without IV contrast. Reformatting in the coronal and sagittal planes. Device: Revolution [place] DLP: 155 mGy-cm CTDI: 4.89 Dose optimization [...] the coronal and sagittal planes. Device: [employer] [place] DLP: 155 mGy-cm CTDI: 4.89 Dose optimization [...] Signed Date: 02/22/2025 10:41 ET Workstation ID: [id number] Transcribed By: Self Edit Transcribed Date: 02/22/2025 10:34 ET Mary Gar MD IM CT PROCEDURES Final Result * MG Mammo Digital Screening w Arnav bilat (01/09/2025 4:01 PM EDT) Anatomical Region Laterality Modality Breast Bilateral Mammography 01/10/2025 2:44 PM EDT Impressions 01/10/2025 2:49 PM EDT 1. No mammographic evidence of malignancy 2. Scattered fibroglandular tissue BI-RADS CATEGORY: 2 - BENIGN RECOMMENDATION: Screening bilateral mammogram is recommended in 1 year. Mammo Location: [facility], [address] [place] [address], [phone], . -------- FINAL REPORT -------- Dictated By: Celso Miller Dictated Date: 01/10/2025 14:44 ET Assigned Physician: Celso Miller Reviewed and Electronically Signed By: Celso Miller Signed Date: 01/10/2025 14:49 ET Workstation ID: [id number] Transcribed By: Self Edit Transcribed Date: 01/10/2025 [...] is recommended in 1 year. Mammo Location: [facility], [address] [place] [address], [phone], . -------- FINAL REPORT -------- Dictated By: Celso Miller Dictated Date: 01/10/2025 14:44 ET Assigned Physician: Celso Miller Reviewed and Electronically Signed By: Celso Miller Signed Date: 01/10/2025 14:49 ET Workstation ID: [id number] Transcribed By: Self Edit Transcribed Date: 01/10/2025 14:44 ET Hortensia Hunter DO IMG BI PROCEDURES Final Result * Colonoscopy (02/23/2021) Colonoscopy abstracted; no interpretation Anatomical Region Laterality Modality Other Historical Provider HEALTH MAINTENANCE Final Result * Hepatitis C Screening (08/18/2015) Hepatitis C Screening abstracted Historical Provider HEALTH MAINTENANCE Final Result from Last 3 Months or Most Recently Relevant to Health Maintenance Insurance Care Teams Arc Furnace Operator Relationship Specialty Start Date End Date Sarah Price MD [address] [facility] [address] PCP - General Internal Medicine 04/25/25
--- OUTSIDE RECORDS SUMMARY | 2025-07-10 12:48 | XMS_ITS | Encounter Summary ---
Author Organization [facility] Address [address] [place] [address] Care Team Providers Care Scientific Photographer Name Role Phone Anabel Rapp MD Primary Care Provider Hortencia Koch MD Unavailable Nella Soria PA-C Unavailable Unavailab le Encounter Details Date Type Department Care Team Description 02/16/2022 [facility] Medical Records [address] [place] [id number] Abstract, Provider Social History Tobacco Use Types [...] How often do you attend judaism or lutheran serv ices? Never 06/28/2019 Do you belong [...] suspected to have Coronavirus/COVID-19? No / Unsure 02/17/2022 10:57 AM EDT documented as of this encounter Plan of Treatment Not on file documented as of this encounter Visit Diagnoses Not on filedocumented in this encounter Care Teams Scientific Photographer Relationship Specialty Start Date End Date nAabel Rapp MD PCP - General Family Practice 05/07/21 Hortencia Boss MD Specialist Cardiology 03/02/22 Nella Soria PA-C Cardiology 04/14/22 documented as of this encounter
--- OUTSIDE RECORDS SUMMARY | 2025-07-10 12:48 | XMS_ITS | Encounter Summary ---
Author Organization [facility] Address [address] [place] [address] Care Team Providers Care Boilers Inspector Name Role Phone Lizzeth Aj MD Primary Care Provider Peter Osullivan MD Primary Care Provider [phone] Garry Lucero NP Primary Care Provider Anabel Rapp MD Primary Care Provider Hortencia Koch MD Unavailable Nella Soria PA-C Unavailable Unavailab le Reason for Visit * Reason Comments Encounter Details Date Type Department Care Team Description 08/22/2014 Telephone General Surgery [address] [place] [address] Tobi Stanton MD Social History Tobacco Use Types Packs/Day Years Used Date Smoking Tobacco: Every Day Cigarettes 1 Smokeless Tobacco: Never Comments:started age 23 Alcohol Use Standard Drinks/Week Comments No 0 (1 standard drink = 0.6 oz pure alcohol) 1 pint VSOP daily for about 1 year, quit Aug 2008. Social Isolation Answer Date Recorded In a typical week, how many times do you talk on the phone with family, friends, or neighbors? Twice a week 06/28/2019 How often do you get together with friends or re latives? Once a week 06/28/2019 How often do you attend amish or mormonism serv ices? Never 06/28/2019 Do you belong to any clubs o r organizations such as amish groups, unions, fraternal or athletic groups, or [...] encounter Miscellaneous Notes * Telephone Encounter - Tobi Stanton MD - 08/22/2014 3:45 PM EST no * Telephone Encounter - Nevaeh Lizarraga M.A. - 08/22/2014 2:35 PM EST Chest xray not done do we still need documented in this encounter Plan of Treatment Not on file documented as of this encounter Visit Diagnoses Not on filedocumented in this encounter Care Teams Boilers Inspector Relationship Specialty Start Date End Date Lizzeth Aj MD PCP - General 08/30/01 07/02/20 Peter Allen MD [address] [place] [address] PCP - General Internal Medicine 07/03/20 04/30/21 Garry Lucero NP [address] [place] [address] PCP - General Internal Medicine 05/01/21 05/06/21 Anabel Rapp MD [address] [place] [address] PCP - General Family Practice 05/07/21 Hortencia Boss MD [address] [place] [address] Specialist Cardiology 03/02/22 Nella Soria, PAPelonC [address] [place] [address] Cardiology 04/14/22 documented as of this encounter
--- OUTSIDE RECORDS SUMMARY | 2025-07-10 12:48 | XMS_ITS | Encounter Summary ---
Author Organization [facility] Address [address] [place] [address] Care Team Providers Care French Comber Name Role Phone Anabel Rapp MD Primary Care Provider Hortencia Koch MD Unavailable Nella Soria PA-C Unavailable Unavailab le Encounter Details Date Type Department Care Team Description 02/16/2022 [facility] Medical Records [address] [place] [id number] Abstract, Provider Social History Tobacco Use Types [...] week 06/28/2019 How often do you attend episcopal or buddhism serv ices? Never 06/28/2019 Do you belong to any clubs o r organizations such as episcopal groups, unions, fraternal or athletic groups, or [...] on filedocumented in this encounter Care Teams French Comber Relationship Specialty Start Date End Date Anabel Rapp MD PCP - General Family Practice 05/07/21 Hortencia Boss MD Specialist Cardiology 03/02/22 Nella Soria PA-C Cardiology 04/14/22 documented as of this encounter
--- OUTSIDE RECORDS SUMMARY | 2025-07-10 12:48 | XMS_ITS | Encounter Summary ---
Author Organization [facility] Address [address] [place] [address] Care Team Providers Care Trade Economist Name Role Phone Anabel Rapp MD Primary Care Provider Hortencia Koch MD Unavailable Nella Soria PA-C Unavailable Unavailab le Encounter Details Date Type Department Care Team Description 04/06/2022 Hospital Medical Records [address] [place] [address] Jt Diaz MD [address] [place] [address] Social History Tobacco Use Types Packs/Day Years [...] week 06/28/2019 How often do you attend denominational or islam serv ices? Never 06/28/2019 Do you belong to any clubs o r organizations such as denominational groups, unions, fraternal or athletic groups, or [...] on filedocumented in this encounter Care Teams Trade Economist Relationship Specialty Start Date End Date Anabel Rapp MD PCP - General Family Practice 05/07/21 Hortencia Boss MD Specialist Cardiology 03/02/22 Nella Soria PA-C Cardiology 04/14/22 documented as of this encounter
== END 2025-07-10 11:40 | disposition home or self-care (01) ==
LOC: HO.HPHYS 10:38
PROVIDERS: PCP Nurse Practitioner; Visit Provider Physical Medicine & Rehabilitation
DX: M84.48XD Pathological fracture, other site, subsequent encounter for fracture with routine healing (principal); M53.3 Sacrococcygeal disorders, not elsewhere classified; M46.1 Sacroiliitis, not elsewhere classified
CPT/HCPCS: 99213; G2211